=== PATIENT | female | born 1955 | race Caucasian/White ===

== ENCOUNTER 2016-07-02 21:15 | Inpatient (IN) | payer MEDICARE, OTHER ==
--- NOTE | ~2016-07-02 | CR63 ---
[facility] A Service of [facility] RADIOLOGY TEXT RESULTS PATIENT: CORNELIUS SAMS LOCATION: [facility] 313-01 : 55 UNIT #: [id number] AGE: [address]: Natalie Stephenson MD SEX: F ORDER DR: [id number] [facility] [address] [place], [place] [address] [id number] I MR#: [id number] Acc #: [id number] NAME: CORNELIUS SAMS : 1955 SEX: F STUDY DATE/TIME: 07/05/2016 08:16 UNIT: [address] ROOM: [facility] STUDY DESCRIPTION: CR Chest 2 View Attending Physician: Natalie Stephenson M.D. Ordering Physician: Leonel Menendez M.D. Primary Care Physician: Haroldo Birmingham M.D. MEDICAL IMAGING REPORT This report is preliminary unless electronic signature is present EXAM Chest 2 views 07/05/2016 0816 hours HISTORY 60-year-old woman complaining of shortness of air for 4 days. History of asthma, diabetes and transient ischemic attack. COMPARISON 07/02/2016. FINDINGS Upright PA and lateral views of the chest are limited by low lung volumes and large body habitus. Heart size is stable at the upper limits of normal with stable tortuous aorta. There is hazy density at the right lung base similar to prior film. Lateral view is poorly penetrated and assessment for effusions cannot be made. No definite effusion is seen on the left. IMPRESSION Film is limited by large body habitus. The lateral view is nondiagnostic. There is no significant change from prior study. There is minimal hazy right basilar density with old rib fractures present on the right. No definite effusion or pneumothorax. Dictated by... Janine Erickson M.D. THIS IS AN ELECTRONICALLY VERIFIED REPORT Janine Erickson M.D. at 07/05/2016 2:35 PM [facility] A Service of [facility] RADIOLOGY TEXT RESULTS PATIENT: CORNELIUS SAMS LOCATION: [facility] 313-01 : 55 UNIT #: [id number] AGE: [address]: Natalie Stephenson MD SEX: F ORDER DR: QUINCY/hans TD: 07/05/2016 10:07 JOB #: [id number] MEDICAL IMAGING REPORT COPY
--- NOTE | ~2016-07-02 | CR72 ---
[facility] A Service of [facility] RADIOLOGY TEXT RESULTS PATIENT: CORNELIUS SAMS LOCATION: [facility] 313-01 : 55 UNIT #: [id number] AGE: [address]: Natalie Stephenson MD SEX: F ORDER DR: [id number] [facility] [address] [place], [place] [address] [id number] I MR#: [id number] Acc #: [id number] NAME: CORNELIUS SAMS : 1955 SEX: F STUDY DATE/TIME: 07/02/2016 20:16 UNIT: [address] ROOM: [facility] STUDY DESCRIPTION: CR Chest Single View Portable Attending Physician: Natalie Stephenson M.D. Ordering Physician: Hi Singh M.D. Primary Care Physician: Haroldo Birmingham M.D. MEDICAL IMAGING REPORT This report is preliminary unless electronic signature is present EXAM Chest portable, 07/02/2016 2016 hours HISTORY 60-year-old with shortness of air, fever, weakness and altered mental status today. COMPARISON 02/02/2016 FINDINGS Portable upright chest demonstrates stable spinal fusion rods. The lung volumes are low, with linear bibasilar densities decreased from the prior study. Basilar findings are likely atelectasis given the very low lung volumes. Heart size is stable. Chronic subluxation/dislocation at the right shoulder is unchanged. IMPRESSION 1. Persistent low lung volumes with minimal patchy bibasilar densities. Atelectasis is favored. There is no definite edema or effusion. 2. Chronic subluxation/dislocation at the right shoulder is unchanged from 02/02/2016. Dictated by... Janine Erickson M.D. THIS IS AN ELECTRONICALLY VERIFIED REPORT Janine Erickson M.D. at 07/03/2016 9:25 AM QUINCY/zina TD: 07/03/2016 00:49 [facility] A Service of [facility] RADIOLOGY TEXT RESULTS PATIENT: CORNELIUS SAMS [facility]ATION[facility] [id number] : 55 UNIT #: [id number] AGE: [address]: Natalie Stephenson MD SEX: F ORDER DR: JOB #: [id number] MEDICAL IMAGING REPORT COPY
--- NOTE | ~2016-07-02 | A ---
[facility] Nutrition Therapy DATE: 07/12/16 Patient: CORNELIUS SAMS Physician: SHERMAN Address: [facility] Room/Bed: [address] [place] [address], Zip: [place] [address] Admit Date: 07/02/16 Date of : 55 Height: 5 4 Weight: 227 103 NUTRITIONAL ASSESSMENT: REASON: LOS NUTRITION ASSESSMENT 60 YO FEMALE ADMITTED FOR SOB, FEVER, PNA PMH: DM, HTN, COPD, CAD, CVA, obesity, chronic pain, depression, cholecystectomy Anthropometrics: Ht: 64" Wt: 110.4 kg BMI: 41.8 Wt 07/12: 103 kg Weights range from 103-111 kg since admission Labs: BUN 32 Accuchecks 79-241 Meds: Furosemide, spironolactone, novolog, lipitor, pepcid, miralax, therapeutic formula, zofran, senokot, vitamin D, MOM I/O & Bowel function: 920/6472, last BM 07/12 Skin Integrity: Loosened nail left great toe Redness to coccyx and upper chest/ neck Edema: 3+ RLE/ RUE/ hand 2+ BUE Diet: Heart healthy Assessment: Chart reviewed, events noted. Pt seen for LOS nutrition assessment. RD spoke with the pt at bedside. Pt reports having a good appetite, and typically consuming 100% of meals since admission. RD briefly reviewed the pt's diet, and the pt denied having any questions. Pt did not want further diet education at this time. Pt does not seem to be at nutritional risk. Dx: N/A Intervention: 1. Heart healthy/ consistent carbohydrate diet Monitoring, Evaluation and Goals: 1. Oral intake; Continue to tolerate 50-75% meals 2. Labs; WNL 3. Weight; promote gradual weight loss [facility] Nutrition Therapy DATE: 07/12/16 Patient: CORNELIUS SAMS Physician: SHERMAN Address: [facility] Room/Bed: [address] [place] [address], Zip: [place] [address] Admit Date: 07/02/16 Date of : 55 Height: 5 4 Weight: 227 103 Recommendations: 1. Add consistent carbohydrate to diet in order due to the pt's h/o DM. Pt is not at nutritional risk at this time. Respectfully, JESSICA CARRANZA RD, LD [facility] cc: client file
--- NOTE | ~2016-07-02 | CO ---
Unit #: [id number] #: [id number] Patient: CORNELIUS SAMS [id number] [address] [place], [place] [address] [id number] I MR#: [id number] NAME: CORNELIUS SAMS ROOM: 313 Age: 60 Sex: F Admission Date: 07/02/2016 : 1955 Attending Physician: Natalie Stephenson M.D. Primary Care Physician: Haroldo Birmingham M.D. Consultation Date: 07/07/2016 CONSULTATION REPORT REASON FOR CONSULTATION Type 2 diabetes mellitus. HISTORY OF PRESENT ILLNESS Ms. Mary Pederson is a 60-year-old female, who has history of type 2 diabetes mellitus with A1c 7%, history of CVA, hypertension, COPD, who has been admitted with fever, shortness of air, and hypotension. She is being currently treated for possible sepsis. She is on also IV steroids. Her blood sugar has been above between 200 to 300 mg/dL. I have been asked to see the patient for further management. PAST MEDICAL HISTORY Type 2 diabetes mellitus, hypertension, COPD, history of CVA with right hemiplegia, coronary artery disease. PAST SURGICAL HISTORY Cholecystectomy, appendectomy, hysterectomy. SOCIAL HISTORY She is resident of [facility]. She has past history of smoking, quit some time ago. No alcohol or drug abuse. FAMILY HISTORY Noncontributory. ALLERGIES To sulfa and ibuprofen. HOME MEDICATIONS List is reviewed. CURRENT MEDICATIONS She is on Solu-Medrol IV q.8 and high dose supplement sliding scale. REVIEW OF SYSTEMS Not obtainable from the patient. Poor historian. PHYSICAL EXAMINATION GENERAL: She looks comfortable, in no acute respiratory distress. VITAL SIGNS: Temperature 98, respirations 18, blood pressure 156/77. HEENT: EOMI. Pupils equally reactive to light. NECK: Supple. No thyromegaly noted. CHEST: Good air entry. CVS: Regular rhythm. No murmurs. Unit #: [id number] #: [id number] Patient: CORNELIUS SAMS ABDOMEN: Benign. NEUROLOGIC: Right hemiparesis. DIAGNOSTIC STUDIES LABORATORY RESULTS: Reviewed. A1c 7.1. Accu-Chek log is reviewed. ASSESSMENT 1. Type 2 diabetes mellitus with hyperglycemia likely secondary to the IV steroids. 2. History of cerebrovascular accident with right hemiparesis. 3. Chronic obstructive pulmonary disease. PLAN I will discontinue Levemir and start the patient on NPH 20 units before each Solu-Medrol dose, NovoLog 5 units each meal plus medium dose supplement sliding scale, Accu-Cheks a.c. and h.s. Continue consistent carb diet. Thanks again for consultation. Dictated by... John Garza/nilo TD: 07/08/2016 01:08 JOB #: [id number] CONSULTATION REPORT X Marvin Reaves MD X CONSULTATION REPORT
--- NOTE | ~2016-07-02 | DS ---
Unit #: [id number] #: [id number] Patient: CORNELIUS BEDOYA [id number] [address] [address] [id number] I MR#: [id number] NAME: CORNELIUS BEDOYA ROOM: 313 Age: 60 Sex: F Admission Date: 07/02/2016 : 1955 Discharge Date: 07/12/2016 Attending Physician: Natalie Stephenson M.D. Primary Care Physician: Haroldo Birmingham M.D. DISCHARGE SUMMARY FINAL DIAGNOSES 1. Qerus-zq-vjtgxfh respiratory failure. 2. Pneumonia. 3. Possible obstructive sleep apnea. 4. Chronic obstructive pulmonary disease. 5. Systolic congestive heart failure with left ventricular ejection fraction of 15%. 6. History of cerebrovascular accident with right hemiplegia. 7. Immobility syndrome. 8. Paroxysmal supraventricular tachycardia. 9. Diabetes mellitus type 2. 10. Hypertension. 11. Hyperlipidemia. 12. Morbid obesity. 13. Chronic pain. DISCHARGE MEDICATIONS Discharge medications are: 1. Niferex 150 mg b.i.d. 2. Pepcid 20 mg daily. 3. Multivitamin one tablet daily. 4. Hydrocodone 10/325 one tablet q.4 h. p.r.n. 5. Spironolactone 12.5 mg p.o. daily. 6. Potassium 10 mEq daily. 7. Vitamin D 50,000 units weekly. 8. Senokot one tablet q.h.s. 9. Milk of magnesia 30 mL daily p.r.n. for constipation. 10. MiraLAX 17 g p.o. daily. 11. Furosemide 40 mg q.a.m. and 20 mg nightly. 12. Lipitor 10 mg q.h.s. 13. Insulin NPH 25 units subcu daily. 14. Januvia 100 mg daily. 15. Zofran 4 mg q.6 h. p.r.n. 16. Seroquel 25 mg q.a.m. and 50 mg q.h.s. 17. Clonazepam 2 mg q.h.s. p.r.n. 18. Coreg 6.25 mg b.i.d. 19. Nebulizer treatment with albuterol and ipratropium b.i.d. and q.4 h. p.r.n. 20. Prednisone 30 mg daily for three days, decrease 10 mg every three days until off. 21. Entresto one tablet q.12 h. 22. Cymbalta 60 mg b.i.d. 23. Zestril 50 mg q.h.s. Unit #: [id number] #: [id number] Patient: CORNELIUS BEDOYA Please note patient has completed the course of IV antibiotics. CONSULTATION DURING HOSPITALIZTAION 1. Dr. Luis Menendez from pulmonary services. 2. Dr. Reaves from endocrinology services. 3. Dr. Neal from cardiology services. DIAGNOSTIC STUDIES LABORATORY WORKUP: On discharge BMP shows sodium 140, potassium 4.0, chloride 100, BUN 32, creatinine 0.6, calcium 9.7. CBC shows WBC 20.2, hemoglobin 13.9, hematocrit 44.5 and platelet count of 220. IMAGING: Significant radiological studies done: CT scan of the chest which was done on the showed subsegmental infiltrate and atelectasis in the inferior lingula. Additional mild linear atelectasis in the posterior lower lobes. No pleural effusion. CT scan of the head without contrast was done on admission which shows no acute infection. CARDIOVASCULAR: Echocardiogram which was done during this Hospitalization which shows ejection fraction of 15%. HOSPITAL COURSE Ms. Cornelius Bedoya is a 60-year-old female who was admitted to the hospital with acute respiratory failure and altered mental status. Patient had accelerated hypertension also. Patient was diagnosed with healthcare-acquired pneumonia. A lot of history was taken from the patient's caregiver, Ms. Fernandes. Patient's medications were adjusted. IV antibiotics were started and IV Solu-Medrol was started. Patient also was started on BiPAP 16/6 plus O2 to be worn at nighttime. Echocardiogram ordered as patient was not really improving and BNP was elevated. Echocardiogram showed ejection fraction of 15%. Cardiology was consulted. Patient was placed on 1800 mL fluid restriction and medications were adjusted. Dr. Neal discussed with the patient's caregiver and power of workers compensation attorney, discussed overall medical condition and severe cardiomyopathy and code status. The patient's guardian agreed for conservative medical treatment, no cardiac cath at this time. She was undecided about code status; may need to have another discussion as outpatient. The patient's diuretics were increased and medications were adjusted. Patient is doing much better at this time, being discharged home on above medications. Patient will need BiPAP 16/6 with oxygen at nighttime. PHYSICAL EXAMINATION VITAL SIGNS: On discharge blood pressure 116/70, respiratory rate 19, pulse is 55, temperature 98.2. CHEST: Has fair air entry, decreased at the bases. CVS: S1, S2 positive, regular rhythm. DISCHARGE INSTRUCTIONS 1. Patient is being discharged to rehab facility in stable condition. 2. Dr. Birmingham to follow up the patient in [facility]. 3. Continue fluid restriction. 4. Follow up with Dr. Neal in one month. 5. Discuss code status with the patient's guardian as outpatient. Unit #: [id number] #: [id number] Patient: CORNELIUS BEDOYA Dictated by... John Hendrix/junior TD: 07/12/2016 15:58 JOB #: [id number] DISCHARGE SUMMARY X Natalie Stephenson MD X DISCHARGE SUMMARY
--- NOTE | ~2016-07-02 | CO ---
Unit #: [id number] #: [id number] Patient: CORNELIUS SAMS [id number] [facility]. [place], [place] [address] [id number] I MR#: [id number] NAME: CORNELIUS SAMS ROOM: 313 Age: 60 Sex: F Admission Date: 07/02/2016 : 1955 Attending Physician: Natalie Stephenson M.D. Primary Care Physician: Haroldo Birmingham M.D. Consultation Date: 07/09/2016 CONSULTATION REPORT Consult was requested per Dr. Menendez. This is a 60-year-old female with a past medical history of having a cerebrovascular accident in May 2013 with right sided hemiplegia, residual, obesity, hypertension, hyperlipidemia, diabetes, coronary artery disease, COPD, former smoker. She resides at [facility]. She was admitted on 07/02/16 with complaints of shortness of breath and high fever, found to be hypotensive after presenting to [facility] emergency room and found to have pneumonia. She as admitted and is being treated for pneumonia. During hospitalization for workup, she had an echocardiogram that revealed her ejection fraction is only 15% and, thus, cardiology was consulted. PAST MEDICAL HISTORY As stated above. PAST CARDIAC TESTING DENILSON in May 2013, status post her stroke. Her EF was found to be 50% to 55%. No other details of the DENILSON noted. However, she had a CT of her chest on 07/08 which showed low lung volumes and linear atelectasis in bilateral lower lobes. PAST SURGICAL HISTORY 1. Cholecystectomy. 2. Appendectomy. 3. Hysterectomy. 4. Orthopedic surgery to remove a right toe. 5. Back surgery with jania placement. FAMILY HISTORY Significant for coronary artery disease as her mother had a three vessel CABG at the age of 70 and at age 78. Father's side is unknown to her. ALLERGIES Sulfa and ibuprofen. MEDICATIONS Home medicines include: 1. Multivitamin daily. 2. Vitamin D 5000 units weekly. 3. Clonazepam 2 mg at bedtime. 4. Cozaar 50 mg daily. 5. Cymbalta 60 mg b.i.d. Unit #: [id number] #: [id number] Patient: CORNELIUS SAMS 6. Lodine 400 mg three times a day as needed for pain. 7. Furosemide 40 mg daily. 8. Neurontin 600 mg three times a day. 9. Januvia 100 mg daily. 10. Potassium 10 mEq daily. 11. Lipitor 10 mg at bedtime. 12. Milk of magnesia 30 mg daily as needed. 13. MiraLAX 17 g p.o. daily. 14. [place] 10/325, one tablet every four hours as needed. 15. Norvasc 10 mg at bedtime. 16. Pepcid 20 mg daily. 17. Senna tablet, one tablet at bedtime. 18. Tizanidine 4 mg b.i.d. 19. Zyrtec 10 mg daily. 20. Desyrel 50 mg at bedtime. 21. Fish oil 1000 mg daily. 22. Invanz 1 g intramuscularly daily. 23. Melatonin 3 mg at bedtime. 24. Niferex 150 mg b.i.d. 25. Albuterol sulfate two puffs every six hours as needed for shortness of air. 26. Seroquel 25 mg in the morning and 15 mg at bedtime. 27. Zofran 4 mg p.o. every six hours p.r.n. REVIEW OF SYSTEMS Not really able to be obtained as she was a rather poor historian. She does tell me she has no complaints, however, and no pain. PHYSICAL EXAMINATION VITAL SIGNS: 97.4, 98 heart rate, respirations 16, 156/88. Her weight is 111 kilograms. Her BMI is 41. GENERAL: She is laying in bed and appears in no acute distress. Her entire right side is immobile. HEENT: Head is normocephalic. Extraocular movements are intact. Pupils are equal. LUNGS: Diminished in the bases with coarse rhonchi bilaterally. CARDIOVASCULAR: She is in a regular rate with a regular rhythm. S1, S2 noted. ABDOMEN: Soft, nondistended and obese. However, she is tender to the left upper quadrant and she has positive bowel sounds. EXTREMITIES: 1+ edema and the right side has more edema than the left side. Her left hand is also mildly edematous at 1+. She is able to move upper and lower left sided extremities but is not able to move upper or lower right sided extremities. DIAGNOSTIC STUDIES IMAGING: Chest x-ray was done which showed persistent low lung volumes, minimal patchy bibasilar densities, atelectasis. LABORATORY: BNP of 312, sodium 132, potassium 4.6, chloride 92, CO2 30, BUN of 31, creatinine 0.6, glucose 221. Liver enzymes were normal. Urinalysis showed 3+ protein, more than 1000 glucose and 2+ blood with no bacteria noted. CARDIOVASCULAR: EKG dated July 02, 2016, showed normal sinus rhythm Unit #: [id number] #: [id number] Patient: CORNELIUS SAMS with nonspecific T wave abnormalities and a poor R wave progression. 2D echo on 07/08/16 showed an EF of 15%. ASSESSMENT 1. Acute hypoxic respiratory failure. 2. Acute systolic heart failure with an ejection fraction of 15%. 3. Diabetes: A1c of 7.1. 4. History of cerebrovascular accident with right sided hemiplegia in 2013. 5. Pneumonia. 6. Obesity. 7. Chronic obstructive pulmonary disease. 8. History of hyperlipidemia. PLAN I discussed with her guardian. However, she does not have a power of commercial attorney. Her blood pressure is quite elevated. We will start her on Coreg for her low EF 3.125 p.o. b.i.d. with parameters and spironolactone 25 mg p.o. daily. Check the cost of the Entresto as this would be appropriate to start Entresto. She has been on a diuretic, Lasix, 40 mg p.o. b.i.d. which is continued and an ARB, Cozaar 100 mg daily. Will DC her hydrochlorothiazide and continue her Norvasc 10 mg daily. She may be a candidate for a LifeVest upon discharge. Further plan per Dr. Neal. Thank you for this consultation. Dictated by... Meenu Huang APRN for John Valentine/elijah TD: 07/10/2016 07:54 JOB #: [id number] CONSULTATION REPORT X X CONSULTATION REPORT
--- NOTE | ~2016-07-02 | HP ---
Unit #: [id number] #: [id number] Patient: CORNELIUS SAMS [id number] [address] [place], [place] [address] [id number] I MR#: [id number] NAME: CORNELIUS SAMS ROOM: 313 Age: 60 Sex: F Admission Date: 07/02/2016 : 1955 Attending Physician: Natalie Stephenson M.D. Primary Care Physician: Haroldo Birmingham M.D. HISTORY AND PHYSICAL CHIEF COMPLAINT Shortness of breath, fever and congestion. HISTORY OF PRESENT ILLNESS Most of the history was taken from the patient's chart and emergency room notes. The patient is not able to provide much history. The patient did have a stroke in the past. Per the emergency room note, the patient had this going on yesterday, which started kind of suddenly. She had shortness of breath and high fever. She was sent to the emergency room for further evaluation. The patient was found to be hypotensive. She was found to have pneumonia and was admitted to the telemetry unit. I left a message for the family to call me back. PAST MEDICAL HISTORY The patient does have a significant past medical history 1. Diabetes mellitus. 2. Hypertension. 3. Chronic obstructive pulmonary disease. 4. History of coronary artery disease. 5. History of CVA with right hemiplegia. 6. Obesity. 7. Chronic pain. 8. Depression. PAST SURGICAL HISTORY 1. Cholecystectomy. 2. Appendectomy. 3. Hysterectomy. 4. Orthopedic surgery, right foot toe removal. 5. Back surgery with jania placement. Details of these surgeries are not known. SOCIAL HISTORY The patient is a resident of [facility]. She has a past history of smoking. She quit some time ago. No history of alcohol abuse or drug abuse. FAMILY HISTORY Unknown. ALLERGIES The patient is allergic to sulfa medications and ibuprofen. Unit #: [id number] #: [id number] Patient: CORNELIUS SAMS HOME MEDICATIONS 1. Multivitamins daily. 2. Vitamin D 50,000 units q. weekly. 3. Clonazepam 2 mg at bedtime. 4. Cozaar 50 mg daily. 5. Cymbalta 60 mg b.i.d. 6. Lodine 400 mg t.i.d. 7. Furosemide 40 mg daily. 8. Neurontin 600 mg t.i.d. 9. Januvia 100 mg daily. 10. Potassium 10 mEq daily. 11. Lipitor 10 mg at bedtime. 12. Milk of Magnesia p.r.n. constipation. 13. MiraLAX 17 g daily. 14. [place] 10/325 mg 1 tablet q.4 h. p.r.n. 15. Norvasc 10 mg daily. 16. Pepcid 20 mg daily. 17. Senna 1 tablet at nighttime. 18. Tizanidine 4 mg b.i.d. 19. Zyrtec 10 mg daily. 20. Desyrel 50 mg at bedtime. 21. Fish oil capsules daily. 22. Invanz 1 g daily. 23. Melatonin 3 mg at bedtime. 24. Niferex b.i.d. 25. ProAir inhaler q.6 h. 26. Seroquel 25 mg in the morning and 50 mg at bedtime. 27. Zofran 4 mg q.6 h. p.r.n. REVIEW OF SYSTEMS Not really obtainable at this time. PHYSICAL EXAMINATION GENERAL: The patient is lying in bed. She does not seem to be in any respiratory distress. VITALS: Blood pressure 182/100, respiratory rate 18, pulse 116, temperature 97.5. On admission it was 99.5. Oxygen saturation 90% on 6 liters. HEENT: Head is normocephalic. Eye movements are normal. CHEST: Decreased air entry. Bilateral crackles are heard. HEART: S1 and S2 positive. Regular rhythm. ABDOMEN: Obese, soft. EXTREMITIES: Negative edema. NEUROLOGIC: ELECTROLYTIC ETCHER, the patient does have hemiplegia on the right side and has kind of aphasia. Please note, neurologic examination was limited. Per the nurseKeisha, the family is stating that her aphasia is worse, although no family members are available at this time. DIAGNOSTIC STUDIES IMAGING: Chest x-ray was done, which showed persistent low lung volume with minimal patchy bibasilar densities. Atelectasis is favored. Blood cultures are no growth. LABORATORY: White blood cell count 12.6, hemoglobin 13.0, hematocrit 41.9, platelets 274. Lactic acid 2.1. Sodium 145, potassium 3.4, chloride 99, BUN 33, creatinine 0.8. Liver enzymes are stable. Urinalysis seems to be 3+ protein, more than 1000 glucose, blood 2+, no bacteria. Unit #: [id number] #: [id number] Patient: CORNELIUS SAMS ASSESSMENT The patient is being admitted to the telemetry unit with 1. Acute hypoxic hypercarbic respiratory failure. 2. Healthcare acquired pneumonia. 3. Accelerated hypertension. 4. Chronic obstructive pulmonary disease. 5. Diabetes mellitus, uncontrolled. 6. History of CVA. 7. History of hyperlipidemia. PLAN Admit to the telemetry unit. Dr. Luis Menendez has been consulted. Broad spectrum IV antibiotics have been started. Speech evaluation was done and diet has been adjusted accordingly. Blood pressure medications have been adjusted. CT scan of the head, stroke protocol, will be done as per family members. The patient's aphasia is worse. Hemoglobin A1c is being done. Home medications have been reviewed and adjusted. I have left a message with the family members to call me back to get more detailed history. Dictated by John Hendrix TD: 07/03/2016 13:49 JOB #: [id number] HISTORY AND PHYSICAL X Natalie Stephenson MD HISTORY AND PHYSICAL
--- NOTE | ~2016-07-02 | EKG ---
PATIENT: CORNELIUS SAMS UNIT #: [id number] Ventricular Rate: 85 BPM Atrial Rate: 85 BPM P-R Interval: 132 ms QRS Duration: 94 ms Q-T Interval: 372 ms QTC Calculation(Bezet): 442 ms P Bountiful: 59 degrees Calculated R Bountiful: -6 degrees Calculated T Bountiful: 66 degrees Diagnosis Line: Normal sinus rhythm Diagnosis Line: Nonspecific T wave abnormality Diagnosis Line: Abnormal ECG Diagnosis Line: When compared with ECG of 02-FEB-2016 15:53, Diagnosis Line: Premature ventricular complexes are no longer Diagnosis Line: Present Diagnosis Line: Diagnosis Line: Confirmed by ELISABET PEREIRA MD ([id number]) on Diagnosis Line: 07/02/2016 11:11:30 PM INTERPRETING : SANTOS
--- NOTE | ~2016-07-02 | CO ---
Unit #: [id number] #: [id number] Patient: CORNELIUS SAMS [id number] [address] [place], [place] [address] [id number] I MR#: [id number] NAME: CORNELIUS SAMS ROOM: 313 Age: 60 Sex: F Admission Date: 07/02/2016 : 1955 Attending Physician: Natalie Stephenson M.D. Primary Care Physician: Haroldo Birmingham M.D. Consultation Date: 07/03/2016 CONSULTATION REPORT REASON FOR CONSULTATION Pneumonia and respiratory failure. HISTORY OF PRESENT ILLNESS A 60-year-old female, who has been seen by Dr. Menendez in the past, who has COPD, sleep apnea, and respiratory failure. She actually was on CPAP in the past. The family is not sure why she is not on it now. They mentioned a possible missing piece from her CPAP unit. After her stroke, she lived at home and was relatively independent. She has, however, now transitioned to [facility] where she is a resident. She has become more and more immobile and has gained significant amount of weight. History is difficult to obtain, the patient basically answers to questions in one-word answers and the family is somewhat vague as well because of lack of information. She apparently had fever, chest congestion, shortness of breath and wheezing. In the emergency room, there was a question of sepsis. She was treated with Solu-Medrol, vancomycin, Zosyn, and tobramycin as well as Zithromax. She is more alert today according to family, but not quite back to baseline. 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 MEDICATIONS According to EHR include a variety of vitamins, clonazepam 2 mg at bedtime, Cozaar, Cymbalta, Lodine, Lasix, Neurontin, Januvia, potassium, Lipitor, a variety of bowel prep medications, Sherwood, Norvasc, Pepcid, tizanidine, Zyrtec, Desyrel. There was some mention of Invanz, it is unclear if she was receiving that at the intermediate or not. ProAir inhaler, Seroquel and Zofran. ALLERGIES Listed as sulfa and ibuprofen, unknown reactions. SOCIAL HISTORY She now resides at [facility]. She is a remote smoker. She does not currently drink. FAMILY HISTORY Basically unobtainable. Unit #: [id number] #: [id number] Patient: CORNELIUS SAMS REVIEW OF SYSTEMS Unobtainable in a reliable fashion. PHYSICAL EXAMINATION GENERAL: Reveals a patient, who is awake, in no acute distress, on 5 L. VITAL SIGNS: She is afebrile. Pulse 116, respiratory rate is 18, blood pressure is 182/100, height 5 feet 4 inches, weight 243, BMI is 41. HEENT: Pupils are equal, round, and reactive to light. Sclerae anicteric. Head atraumatic. NECK: Supple. No supraclavicular or cervical adenopathy appreciated. Mallampati class IV oropharynx. CHEST: Posterior auscultation could not be performed. She could not sit up and she was quite frankly too heavy to lift. She did have scattered rhonchi and a few wheeze. No stridor. CARDIAC: Reveals distant heart tones. Regular rate and rhythm. No pathologic murmur, rub, or gallop. ABDOMEN: Obese, soft, and nontender. No hepatomegaly or rebound. EXTREMITIES: Reveal no clubbing, cyanosis, or edema. Calves are nontender. SKIN: Warm and dry without rash or diaphoresis. NEUROLOGIC: She would not cooperate with a neurologic exam. DIAGNOSTIC STUDIES LABORATORY RESULTS: Arterial blood gas; pH is 7.43, pCO2 of 59, pO2 of 66 on 6 L. BUN is 33, creatinine 0.8. Lactic acid 2.3. INR normal. Cardiac enzymes normal. White blood cell count 12.6, hemoglobin 13, platelet count 274. Urinalysis; proteinuria, glucosuria. No significant pyuria or hematuria. Blood cultures performed and are pending. IMAGING STUDIES: Chest x-ray of low lung matamoros, she does have some left hemidiaphragm elevation. There is a retrocardiac density as well as right lower lobe density, atelectasis versus pneumonia. CARDIOVASCULAR STUDIES: Rhythm strips, sinus. EKG; nonspecific ST-T wave changes. IMPRESSION 1. Likely pneumonia, suspect aspiration. Must consider gram-negative rods or methicillin-resistant Staphylococcus aureus. 2. Respiratory failure, acute on chronic, usually on 2 L at the intermediate. 3. Obstructive sleep apnea, currently not on continuous positive airway pressure, but apparently was. Unknown reasons why she is not now. 4. Cerebrovascular accident. 5. Immobilization. 6. Hypertension with elevated blood pressure. 7. Multiple medical problems listed above. PLAN Maximize pulmonary status with a brief pulse of steroids, nebulized bronchodilators. Streptococcal and Legionella urinary antigens will be checked. My suspicion for atypical infection is low, so discontinue the Zithromax. We will hopefully be able to deescalate antibiotics relatively soon and this concept has been discussed with family. We will try BiPAP at night primarily for her sleep apnea. Long-term prognosis appears guarded. Thank you very much for allowing us to participate in the care of . Unit #: [id number] #: [id number] Patient: CORNELIUS SAMS. Dictated by... Rickey Veronica M.D. GONZALEZ/nilo TD: 07/04/2016 04:09 JOB #: [id number] CONSULTATION REPORT X Rickey Veronica MD X CONSULTATION REPORT
--- NOTE | ~2016-07-02 | BMI ---
[facility] Nutrition Therapy DATE: 07/03/16 Patient: CORNELIUS SAMS Physician: SHERMAN Address: [facility] Room/Bed: [address] [place] [address], Zip: [place] [address] Admit Date: 07/02/16 Date of : [birth year] Height: 5 4 Weight: 243 110.4 HIGH BMI NOTE: DX: 60 y/o female admitted with HCAP No new H&P available ANTHROPOMETRICS: Ht: 64", Wt: 110.4 kg, BMI: 41 DIET: Regular INTERVENTION: CC/HH diet, fluids/meds per MD RECOMMENDATIONS: Please change diet to consistent carb/healthy heart due to PMH and morbid obesity to promote a gradual weight loss towards a healthy BMI range. Respectfully, Fatemeh Glover, TRISHA, LD [facility] cc: client file
--- NOTE | ~2016-07-02 | CR63 ---
[facility] A Service of [facility] RADIOLOGY TEXT RESULTS PATIENT: CORNELIUS SAMS LOCATION: [facility] : 55 UNIT #: [id number] AGE: [address]: Natalie Stephenson MD SEX: F ORDER DR: [id number] [facility] [address]. [place], [place] [address] [id number] I MR#: [id number] Acc #: [id number] NAME: CORNELIUS SAMS : 1955 SEX: F STUDY DATE/TIME: 07/08/2016 7:33 UNIT: [address] ROOM: [facility] STUDY DESCRIPTION: CR Chest 2 View Attending Physician: Natalie Stephenson M.D. Ordering Physician: Leonel Menendez M.D. Primary Care Physician: Haroldo Birmingham M.D. MEDICAL IMAGING REPORT This report is preliminary unless electronic signature is present EXAM Two-view chest. INDICATION Pneumonia follow up. PROCEDURE Frontal view chest. COMPARISON 07/05/2016 FINDINGS Heart size is probably stable but is obscured. There is new hazy opacity throughout the left hemithorax. No pneumothorax. IMPRESSION New hazy opacity throughout the left hemithorax, probably representing a layering left effusion. Could also represent worsening left lung opacity. Dictated by... Jose Reddy M.D. THIS IS AN ELECTRONICALLY VERIFIED REPORT Jose Reddy M.D. at 07/09/2016 9:51 AM EED/tmw TD: 07/08/2016 13:09 JOB #: [id number] MEDICAL IMAGING REPORT [facility] A Service of [facility] RADIOLOGY TEXT RESULTS PATIENT: CORNELIUS SAMS LOCATION: [facility] : 55 UNIT #: [id number] AGE: [address]: Natalie Stephenson MD SEX: F ORDER DR: COPY
--- NOTE | ~2016-07-02 | CT71 ---
[facility] A Service of [facility] RADIOLOGY TEXT RESULTS PATIENT: CORNELIUS SAMS LOCATION: [facility] 313-01 : 55 UNIT #: [id number] AGE: [address]: Natalie Stephenson MD SEX: F ORDER DR: [id number] [facility] [address] [place], [place] [address] [id number] I MR#: [id number] Acc #: [id number] NAME: CORNELIUS SAMS : 1955 SEX: F STUDY DATE/TIME: 07/03/2016 15:56 UNIT: C3A [facility] ROOM: [facility] STUDY DESCRIPTION: CT Head Wo Contrast Attending Physician: Natalie Stephenson M.D. Ordering Physician: Natalie Stephenson M.D. Primary Care Physician: Haroldo Birmingham M.D. MEDICAL IMAGING REPORT This report is preliminary unless electronic signature is present EXAM Noncontrast CT head, 07/03/2016 at 15:56 HISTORY A 60-year-old female who arrived in the emergency room on 07/02/2016 unresponsive and lethargic. Previous history of stroke and previous craniotomy. Hemiplegia. Diabetes. Hypertension. TECHNIQUE This CT exam was performed with one or more of the following radiation dose reduction techniques: automatic exposure control, adjustment of mA and/or kV according to patient size, and iterative reconstruction. COMPARISON CT head without contrast 02/02/2016. FINDINGS Surgical changes of the left frontal temporal and parietal craniotomy are present with josselin hole defect in the right frontal calvarium. Right frontal approach ventriculostomy catheter extends to the third ventricular margin. Ventricular configuration is stable since 02/02/2016. There is chronic-appearing encephalomalacic change centered predominately within the left basal ganglion, with resulting ex vacuo dilation of the left lateral ventricle, similar to prior. Encephalomalacic changes are likewise demonstrated within the left parietal lobe slightly more superiorly, unchanged. There is no convincing CT evidence of acute or evolving infarct on this exam. Mild right sphenoid and left ethmoid sinus mucosal thickening is present. Mastoid air cells are clear. No acute intracranial hemorrhage or mass lesion is seen. IMPRESSION No acute findings. No significant change from 02/02/2016. [facility] A Service of [facility] RADIOLOGY TEXT RESULTS PATIENT: CORNELIUS SAMS LOCATION: [facility] 313-01 : 55 UNIT #: [id number] AGE: [address]: Natalie Stephenson MD SEX: F ORDER DR: Dictated by... Devika Colorado M.D. THIS IS AN ELECTRONICALLY VERIFIED REPORT Devika Colorado M.D. at 07/04/2016 7:31 AM DUNCAN/preet TD: 07/03/2016 20:33 JOB #: [id number] MEDICAL IMAGING REPORT COPY
--- NOTE | ~2016-07-02 | CT57 ---
[facility] A Service of [facility] RADIOLOGY TEXT RESULTS PATIENT: CORNELIUS SAMS LOCATION: [facility] 313-01 : 55 UNIT #: [id number] AGE: [address]: Natalie Stephenson MD SEX: F ORDER DR: [id number] [facility] [address] [place], [place] [address] [id number] I MR#: [id number] Acc #: [id number] NAME: CORNELIUS SAMS : 1955 SEX: F STUDY DATE/TIME: 07/08/2016 14:27 UNIT: [address] ROOM: [facility] STUDY DESCRIPTION: CT Chest Wo Cont Attending Physician: Natalie Stephenson M.D. Ordering Physician: Leonel Menendez M.D. Primary Care Physician: Haroldo Birmingham M.D. MEDICAL IMAGING REPORT This report is preliminary unless electronic signature is present EXAM CT chest without contrast HISTORY Pleural effusion. Pneumonia. Shortness of air and cough for [address] exam was performed with one or more of the following radiation dose reduction techniques: Automatic exposure control, adjustment of mA and/or kV according to patient size, and iterative reconstruction. FINDINGS CT chest without contrast demonstrates moderately dense subsegmental infiltrate and probable associated atelectasis in the inferior lingula. There is also mild linear atelectasis in the posterior lower lobes. No pleural effusions. No adenopathy. Normal caliber thoracic aorta. Spinal jania fixation from the upper thoracic to upper lumbar spine. Mild right thoracic curve. Images of the upper abdomen demonstrate anterior abdominal wall hernia repair and cholecystectomy. IMPRESSION 1. Subsegmental infiltrate and atelectasis in the inferior lingula. 2. Additional mild linear atelectasis in the posterior lower lobes. 3. No pleural effusions. 4. Low lung volumes. 5. No adenopathy. Dictated by... Madhu Bell M.D. THIS IS AN ELECTRONICALLY VERIFIED REPORT [facility] A Service of [facility] RADIOLOGY TEXT RESULTS PATIENT: CORNELIUS SAMS LOCATION: [facility] 313-01 : 55 UNIT #: [id number] AGE: [address]: Natalie Stephenson MD SEX: F ORDER DR: Madhu Bell M.D. at 07/08/2016 11:45 PM DFL/psc TD: 07/08/2016 22:58 JOB #: [id number] MEDICAL IMAGING REPORT COPY
[2016-07-02 20:15] LABS: ARTERIAL BLD GAS O2 SATURATION 90.8 % (90.0-100.0); ARTERIAL BLOOD GAS CARBOXY HB 0.9 %sat (0.0-9.0); ARTERIAL BLOOD GAS HCO3 40.3 mmol/L; ARTERIAL BLOOD GAS pH 7.438 (7.350-7.450)
[2016-07-02 20:16] LABS: ARTERIAL BLOOD GAS ALLEN TEST NORMAL; ARTERIAL BLOOD GAS ART SITE LEFT RADIAL; ARTERIAL BLOOD GAS DELIVERY NASAL CANNULA; ARTERIAL BLOOD GAS PCO2 59.6 mmHg (35.0-45.0); ARTERIAL BLOOD GAS PO2 66.3 mmHg (80.0-100); ARTERIAL DRAW? YES
[2016-07-02 20:32] LABS: POC - CKMB 1.3 ng/mL (0.0-7.9); POC - TROPONIN <0.05 ng/mL (<=0.05)
[2016-07-02 20:36] LABS: BASOPHIL# 0.1 X10e3 (0-0.3); BASOPHIL% 0.5 % (0-2.5); HEMATOCRIT 41.9 % (35.0-45.0); LYMPHOCYTE# 2.4 X10e3 (1.0-3.5); LYMPHOCYTE% 18.8 % (17.0-45.0); MEAN CELL VOLUME 90.2 FL (83-96); MEAN CORPUSCULAR HEMOGLOBIN 28.1 PG (28-34); MEAN CORPUSCULAR HGB CONC 31.1 g/dL (30-36); MEAN PLATELET VOLUME 9.5 FL (6.5-11.5); MONOCYTE# 1.1 X10e3 (0-1.0); MONOCYTE% 8.8 % (3.0-12.0); NEUTROPHIL# 9.1 X10e3 (1.5-7.1); NEUTROPHIL% 71.9 % (40-75); PLATELET COUNT 274 X10e3 (140-420); RED BLOOD COUNT 4.65 X10e (3.90-5.30); RED CELL DISTRIBUTION WIDTH 15.7 % (11.0-15.5); WHITE BLOOD COUNT 12.6 X10e3 (4.0-10.5)
[2016-07-02 20:37] LABS: DIFF IND NO
[2016-07-02 20:49] LABS: PROTHROMBIN TIME (PATIENT) 10.9 SECONDS (9.6-11.5)
[2016-07-02 20:51] LABS: PARTIAL THROMBOPLASTIN TIME <20.0 SECONDS (23.5-31.3)
[2016-07-02 21:02] LABS: ALBUMIN SERUM 3.6 g/dL (3.5-5.0); ALKALINE PHOSPHATASE 72 U/L (32-92); ALT (SGPT) 40 U/L (10-40); AST (SGOT) 33 U/L (10-42); BILIRUBIN, DIRECT 0.1 mg/dL (0.0-0.2); BILIRUBIN,INDIRECT 0.6 mg/dL (0.0-0.9); BILIRUBIN,TOTAL 0.7 mg/dL (0.2-2.0); BLOOD UREA NITROGEN 33 mg/dL (9-23); BUN/CREATININE RATIO 41.25; CALCIUM SERUM 10.1 mg/dL (8.4-10.2); CARBON DIOXIDE 36 mmol/L (22-31); CHLORIDE 99 mmol/L (100-111); CREATININE SERUM 0.8 mg/dL (0.6-1.4); GLOM FILT RATE Estimated ABOVE60 mL/min (>60); GLUCOSE FASTING 244 mg/dL (70-110); LIPASE 31 U/L (22-51); POTASSIUM 3.4 mmol/L (3.5-5.1); PROTEIN TOTAL SERUM 8.2 g/dL (6.0-8.3); SODIUM 145 mmol/L (135-145)
[~2016-07-02 21:15] MED LIST: ALBUTEROL 0.5ML INH; ALBUTEROL17 GM INH; ASPIRIN ENTERI325 M1 PO; ASPIRIN325 M1 PO; ATARAX PO; CLARITIN D PO; CLONAZEPAM2 MG PO; COLACE PO; COZAAR PO; CYMBALTA30 MG PO; DESYREL50 MG PO; DUCOLAX PR; DULOXETINE HCL60 MG PO; FAMOTIDINE PO; FISH OIL 1,001000 M1 PO; FUROSEMIDE40 MG PO; GLUCOPHAGE XR500 MG PO; HYDROCODON-ACE1 EAC3 PO; HYDROCODON-ACE1 EAC5 PO; HYDROCORTISONE30 G1 EXT; HYDROXYZINE HCL25 M1 PO; INVANZ1 G/VIA1 IM; JANUMET 50-1,1 UDTAB PO; JANUMET XR 50-1 EAC1 PO; JANUVIA PO; KLONOPIN PO; KLONOPIN1 MG PO; KLONOPIN2 MG PO; LIPITOR PO; LISINOPRIL-HCTZ1 T15 PO; LISINOPRIL-HCTZ1 T21 PO; LODINE PO; LODINE400 M1 PO; LODINE400 MG PO; LOPRESSOR PO; LORTAB 10/500 T1 TAB PO; MELATIN3 MG PO; MILK OF MAGNESIA PO; MIRALAX17 G2 PO; MULTI VITAMIN1 EACH PO; NEURONTIN600 MG PO; NIFEREX-150 FO150 MG PO; NORCO 10-325 TA1 TAB PO; NORVASC PO; OMEPRAZOLE40 M1 PO; OXYGEN; POTASSIUM CHLO10 MEQ PO; PROAIR RESPICL90 MCG INH; SENNA S TABLET1 TAB PO; SEROQUEL25 MG PO; SEROQUEL50 M1 PO; SIMVASTATIN40 MG PO; SINGULAIR PO; SYMBICORT INH; TAGAMET PO; TIZANIDINE HCL4 M1 PO; VITAMIN D50000 UNIT PO; ZANAFLEX PO; ZANAFLEX4 M1 PO; ZANTAC150 MG PO; ZETIA PO; ZOFRAN PO; ZYRTEC PO; ZYRTEC10 M1 PO; ZYRTEC10 M2 PO
[2016-07-02 21:17] LABS: URINE SOURCE CLEAN CATCH
[2016-07-02 21:21] LABS: URINE APPEARANCE CLOUDY; URINE BILIRUBIN NEG (NEG); URINE BLOOD 2+ (NEG); URINE COLOR YELLOW; URINE GLUCOSE >1000 MG/DL (NEG); URINE KETONE TRACE (NEG); URINE LEUKOCYTE ESTERASE NEG (NEG); URINE NITRATE NEG (NEG); URINE PH 5.5 (5-8); URINE PROTEIN 3+ (NEG); URINE SPECIFIC GRAVITY 1.035 (1.003-1.035); URINE UROBILINOGEN 0.2 MG/DL (NEG)
[2016-07-02 21:22] LABS: URINE BACTERIA AUWI NEG (NEGATIVE); URINE SQUAMOUS EPITHELIAL CELL FEW /[HPF]
[2016-07-02 21:34] LABS: CULTURE INDICATED? NO; URINE AMORPHOUS SEDIMENT AMORP PHOSPHATES
[2016-07-03 02:27] LABS: BASOPHIL% 0.2 % (0-2.5); DIFF IND NO; HEMATOCRIT 40.6 % (35.0-45.0); HEMOGLOBIN 12.7 gm/dL (12.0-16.0); LYMPHOCYTE# 1.8 X10e3 (1.0-3.5); LYMPHOCYTE% 15.9 % (17.0-45.0); MEAN CELL VOLUME 91.1 FL (83-96); MEAN CORPUSCULAR HEMOGLOBIN 28.4 PG (28-34); MEAN CORPUSCULAR HGB CONC 31.2 g/dL (30-36); MEAN PLATELET VOLUME 9.6 FL (6.5-11.5); MONOCYTE# 0.2 X10e3 (0-1.0); MONOCYTE% 2.1 % (3.0-12.0); NEUTROPHIL% 81.8 % (40-75); PLATELET COUNT 251 X10e3 (140-420); RED BLOOD COUNT 4.46 X10e (3.90-5.30); RED CELL DISTRIBUTION WIDTH 15.2 % (11.0-15.5); WHITE BLOOD COUNT 11.1 X10e3 (4.0-10.5)
[2016-07-03 02:51] LABS: BLOOD UREA NITROGEN 31 mg/dL (9-23); BUN/CREATININE RATIO 38.75; CALCIUM SERUM 9.5 mg/dL (8.4-10.2); CARBON DIOXIDE 33 mmol/L (22-31); CHLORIDE 107 mmol/L (100-111); CREATININE SERUM 0.8 mg/dL (0.6-1.4); GLOM FILT RATE Estimated ABOVE60 mL/min (>60); GLUCOSE FASTING 307 mg/dL (70-110); POTASSIUM 3.8 mmol/L (3.5-5.1); SODIUM 145 mmol/L (135-145)
[2016-07-04 06:18] LABS: ALBUMIN SERUM 3.2 g/dL (3.5-5.0); ALKALINE PHOSPHATASE 67 U/L (32-92); ALT (SGPT) 35 U/L (10-40); AST (SGOT) 39 U/L (10-42); BILIRUBIN,TOTAL 0.7 mg/dL (0.2-2.0); BLOOD UREA NITROGEN 21 mg/dL (9-23); CARBON DIOXIDE 30 mmol/L (22-31); CHLORIDE 105 mmol/L (100-111); CREATININE SERUM 0.6 mg/dL (0.6-1.4); GLOM FILT RATE Estimated ABOVE60 mL/min (>60); GLUCOSE FASTING 223 mg/dL (70-110); POTASSIUM 4.4 mmol/L (3.5-5.1); PROTEIN TOTAL SERUM 6.8 g/dL (6.0-8.3); SODIUM 142 mmol/L (135-145)
[2016-07-04 08:00] LABS: BASOPHIL# 0.1 X10e3 (0-0.3); BASOPHIL% 0.6 % (0-2.5); EOSINOPHIL% 0.1 % (0.0-7.0); HEMATOCRIT 39.4 % (35.0-45.0); HEMOGLOBIN 12.3 gm/dL (12.0-16.0); LYMPHOCYTE# 2.9 X10e3 (1.0-3.5); LYMPHOCYTE% 17.5 % (17.0-45.0); MEAN CELL VOLUME 90.2 FL (83-96); MEAN CORPUSCULAR HEMOGLOBIN 28.1 PG (28-34); MEAN CORPUSCULAR HGB CONC 31.1 g/dL (30-36); MEAN PLATELET VOLUME 9.6 FL (6.5-11.5); MONOCYTE# 0.6 X10e3 (0-1.0); MONOCYTE% 3.9 % (3.0-12.0); NEUTROPHIL# 13.1 X10e3 (1.5-7.1); NEUTROPHIL% 77.9 % (40-75); PLATELET COUNT 250 X10e3 (140-420); RED BLOOD COUNT 4.37 X10e (3.90-5.30); WHITE BLOOD COUNT 16.8 X10e3 (4.0-10.5)
[2016-07-04 08:01] LABS: DIFF IND YES
[2016-07-04 11:00] LABS: LEGIONELLA AG URINE NEG (NEG)
[2016-07-04 11:05] LABS: PLATELET ESTIMATE NORMAL (NORMAL)
[2016-07-04 11:06] LABS: ANISOCYTOSIS SL; RBC NORMAL YES
[2016-07-05 06:43] LABS: BLOOD UREA NITROGEN 20 mg/dL (9-23); BUN/CREATININE RATIO 33.33; CALCIUM SERUM 9.5 mg/dL (8.4-10.2); CARBON DIOXIDE 29 mmol/L (22-31); CHLORIDE 99 mmol/L (100-111); CREATININE SERUM 0.6 mg/dL (0.6-1.4); GLOM FILT RATE Estimated ABOVE60 mL/min (>60); GLUCOSE FASTING 234 mg/dL (70-110); POTASSIUM 4.7 mmol/L (3.5-5.1); SODIUM 138 mmol/L (135-145)
[2016-07-05 08:06] LABS: HEMATOCRIT 38.5 % (35.0-45.0); HEMOGLOBIN 12.1 gm/dL (12.0-16.0); MEAN CELL VOLUME 89.7 FL (83-96); MEAN CORPUSCULAR HEMOGLOBIN 28.2 PG (28-34); MEAN CORPUSCULAR HGB CONC 31.4 g/dL (30-36); MEAN PLATELET VOLUME 9.3 FL (6.5-11.5); RED BLOOD COUNT 4.29 X10e (3.90-5.30); RED CELL DISTRIBUTION WIDTH 15.2 % (11.0-15.5); WHITE BLOOD COUNT 12.8 X10e3 (4.0-10.5)
[2016-07-06 05:17] LABS: HEMATOCRIT 38.4 % (35.0-45.0); MEAN CELL VOLUME 88.6 FL (83-96); MEAN CORPUSCULAR HEMOGLOBIN 27.6 PG (28-34); MEAN CORPUSCULAR HGB CONC 31.2 g/dL (30-36); MEAN PLATELET VOLUME 9.6 FL (6.5-11.5); RED BLOOD COUNT 4.34 X10e (3.90-5.30); RED CELL DISTRIBUTION WIDTH 14.6 % (11.0-15.5); WHITE BLOOD COUNT 12.9 X10e3 (4.0-10.5)
[2016-07-06 07:19] LABS: BLOOD UREA NITROGEN 18 mg/dL (9-23); CALCIUM SERUM 9.3 mg/dL (8.4-10.2); CARBON DIOXIDE 30 mmol/L (22-31); CHLORIDE 100 mmol/L (100-111); CREATININE SERUM 0.5 mg/dL (0.6-1.4); GLOM FILT RATE Estimated ABOVE60 mL/min (>60); GLUCOSE FASTING 214 mg/dL (70-110); POTASSIUM 5.1 mmol/L (3.5-5.1); SODIUM 139 mmol/L (135-145)
[2016-07-07 07:44] LABS: BLOOD UREA NITROGEN 22 mg/dL (9-23); BUN/CREATININE RATIO 36.66; CALCIUM SERUM 10.3 mg/dL (8.4-10.2); CARBON DIOXIDE 34 mmol/L (22-31); CHLORIDE 95 mmol/L (100-111); CREATININE SERUM 0.6 mg/dL (0.6-1.4); GLOM FILT RATE Estimated ABOVE60 mL/min (>60); GLUCOSE FASTING 263 mg/dL (70-110); POTASSIUM 4.3 mmol/L (3.5-5.1); SODIUM 143 mmol/L (135-145)
[2016-07-09 08:00] LABS: HEMATOCRIT 45.1 % (35.0-45.0); HEMOGLOBIN 14.7 gm/dL (12.0-16.0); MEAN CELL VOLUME 86.5 FL (83-96); MEAN CORPUSCULAR HEMOGLOBIN 28.3 PG (28-34); MEAN CORPUSCULAR HGB CONC 32.7 g/dL (30-36); MEAN PLATELET VOLUME 8.9 FL (6.5-11.5); RED BLOOD COUNT 5.22 X10e (3.90-5.30); RED CELL DISTRIBUTION WIDTH 17.5 % (11.0-15.5); WHITE BLOOD COUNT 17.7 X10e3 (4.0-10.5)
[2016-07-09 10:23] LABS: BLOOD UREA NITROGEN 31 mg/dL (9-23); BUN/CREATININE RATIO 51.66; CARBON DIOXIDE 30 mmol/L (22-31); CHLORIDE 92 mmol/L (100-111); CREATININE SERUM 0.6 mg/dL (0.6-1.4); GLOM FILT RATE Estimated ABOVE60 mL/min (>60); GLUCOSE FASTING 221 mg/dL (70-110); POTASSIUM 4.6 mmol/L (3.5-5.1); SODIUM 132 mmol/L (135-145)
[2016-07-10 12:54] LABS: BLOOD UREA NITROGEN 41 mg/dL (9-23); BUN/CREATININE RATIO 51.25; CALCIUM SERUM 10.1 mg/dL (8.4-10.2); CARBON DIOXIDE 29 mmol/L (22-31); CHLORIDE 94 mmol/L (100-111); CREATININE SERUM 0.8 mg/dL (0.6-1.4); GLOM FILT RATE Estimated ABOVE60 mL/min (>60); GLUCOSE FASTING 144 mg/dL (70-110); MAGNESIUM 2.2 mg/dL (1.6-3.0); POTASSIUM 3.8 mmol/L (3.5-5.1); SODIUM 136 mmol/L (135-145)
[2016-07-11 06:10] LABS: HEMATOCRIT 44.8 % (35.0-45.0); HEMOGLOBIN 13.9 gm/dL (12.0-16.0); MEAN CELL VOLUME 89.1 FL (83-96); MEAN CORPUSCULAR HEMOGLOBIN 27.6 PG (28-34); MEAN PLATELET VOLUME 10.1 FL (6.5-11.5); RED BLOOD COUNT 5.03 X10e (3.90-5.30); RED CELL DISTRIBUTION WIDTH 15.5 % (11.0-15.5); WHITE BLOOD COUNT 18.2 X10e3 (4.0-10.5)
[2016-07-12 08:19] LABS: HEMATOCRIT 44.5 % (35.0-45.0); HEMOGLOBIN 13.9 gm/dL (12.0-16.0); MEAN CELL VOLUME 89.1 FL (83-96); MEAN CORPUSCULAR HEMOGLOBIN 27.7 PG (28-34); MEAN CORPUSCULAR HGB CONC 31.1 g/dL (30-36); RED CELL DISTRIBUTION WIDTH 15.4 % (11.0-15.5); WHITE BLOOD COUNT 20.2 X10e3 (4.0-10.5)
[2016-07-12 08:42] LABS: BLOOD UREA NITROGEN 32 mg/dL (9-23); BUN/CREATININE RATIO 53.33; CALCIUM SERUM 9.7 mg/dL (8.4-10.2); CARBON DIOXIDE 31 mmol/L (22-31); CHLORIDE 100 mmol/L (100-111); CREATININE SERUM 0.6 mg/dL (0.6-1.4); GLOM FILT RATE Estimated ABOVE60 mL/min (>60); GLUCOSE FASTING 77 mg/dL (70-110); SODIUM 140 mmol/L (135-145)
== END 2016-07-12 20:03 | DRG 177 ==
LOC: CED 21:15 → CEDOF 22:15 → C3A PCU 23:43
PROVIDERS: Emergency Medicine; Hospitalist; Internal Medicine; Physician Assistant Medical
PROC: B24BYZZ Ultrasonography of Heart with Aorta using Other Contrast (ICD-10-PCS; 2016-07-06)
PROC: 05H533Z Insertion of Infusion Device into Right Subclavian Vein, Percutaneous Approach (ICD-10-PCS; principal; 2016-07-08)
PROC: B546ZZA Ultrasonography of Right Subclavian Vein, Guidance (ICD-10-PCS; 2016-07-08)
DX: J69.0 Pneumonitis due to inhalation of food and vomit (principal); I50.21 Acute systolic (congestive) heart failure; J96.21 Acute and chronic respiratory failure with hypoxia; I69.951 Hemiplegia and hemiparesis following unspecified cerebrovascular disease affecting right dominant side; E11.65 Type 2 diabetes mellitus with hyperglycemia; I47.1 Supraventricular tachycardia; Z68.41 Body mass index [BMI] 40.0-44.9, adult; Z79.84 Long term (current) use of oral hypoglycemic drugs; J44.9 Chronic obstructive pulmonary disease, unspecified; I25.10 Atherosclerotic heart disease of native coronary artery without angina pectoris; F32.9 Major depressive disorder, single episode, unspecified; G89.29 Other chronic pain; Z87.891 Personal history of nicotine dependence; Z90.49 Acquired absence of other specified parts of digestive tract; Z90.710 Acquired absence of both cervix and uterus; I11.0 Hypertensive heart disease with heart failure; E78.5 Hyperlipidemia, unspecified; Z88.2 Allergy status to sulfonamides; T38.0X5A Adverse effect of glucocorticoids and synthetic analogues, initial encounter; I69.920 Aphasia following unspecified cerebrovascular disease; G47.33 Obstructive sleep apnea (adult) (pediatric); Z99.81 Dependence on supplemental oxygen; M62.3 Immobility syndrome (paraplegic); E66.01 Morbid (severe) obesity due to excess calories
CPT/HCPCS: 36415; 36600; 51702; 70450; 71010; 71020; 71250; 80048; 80053; 80076; 80200; 80202; 81003; 82553; 82803; 82947; 83036; 83605; 83690; 83735; 83880; 84484; 85025; 85027; 85610; 85730; 87040; 87449; 87899; 92526; 92610; 93005; 93306; 94640; 94660; 94760; 96361; 96374; 96375; 99291; G8996-GN; G8997-GN; G8998-GN; J0456; J1650; J1815; J1940; J2543; J2920; J2930; J3260; J3370

== ENCOUNTER 2016-09-14 14:57 | Inpatient (IN) | payer MEDICARE, OTHER ==
--- NOTE | ~2016-09-14 | CR72 ---
[facility] A Service of [facility] RADIOLOGY TEXT RESULTS PATIENT: CORNELIUS SAMS LOCATION: A 307-01 : 55 UNIT #: [id number] AGE: [address]: Natalie Stephenson MD SEX: F ORDER DR: [id number] [facility] [address] [place], [place] [address] [id number] I MR#: [id number] Acc #: [id number] NAME: CORNELIUS SAMS : 1955 SEX: F STUDY DATE/TIME: 09/14/2016 17:08 UNIT: CEDOF ROOM: 54916 STUDY DESCRIPTION: CR Chest Single View Portable Attending Physician: Natalie Stephenson M.D. Ordering Physician: Higinio Franklin M.D. Primary Care Physician: Haroldo Birmingham M.D. MEDICAL IMAGING REPORT This report is preliminary unless electronic signature is present EXAM AP view of the chest. COMPARISON September 06, 2016, at 1:52 p.m. INDICATIONS 61-year-old female with altered mental status today. Central line placement today. FINDINGS There is a new left internal jugular catheter with the tip terminating in the upper SVC. Bilateral thoracic stabilization rods are incompletely imaged. No evidence of complication is seen. No convincing evidence of pneumothorax on this exam. There is poor respiratory effort. There are healed right-sided rib fractures. There is improved aeration in the left lung base favoring atelectasis. There is cardiomegaly and mediastinal widening, perhaps in part related to low lung volumes, portable technique and patient rotation. There are persistent interstitial opacities in the lungs which may reflect mild pulmonary vascular congestion. No significant pleural effusion. IMPRESSION 1. New left internal jugular catheter terminates in the upper SVC. No evidence of pneumothorax. 2. Improved aeration of the left lung base with minimal residual left basilar opacities favoring atelectasis. 3. Cardiomegaly with diffuse interstitial prominence which may not be appreciably changed from earlier today, suggestive of pulmonary vascular congestion. No significant pleural effusion. 4. Stable mediastinal widening which may be a product of patient rotation, low lung volumes and portable technique. This is not well evaluated on the current exam due to patient rotation. [facility] A Service of [facility] RADIOLOGY TEXT RESULTS PATIENT: CORNELIUS SAMS LOCATION: [facility] 307-01 : 55 UNIT #: [id number] AGE: [address]: Natalie Stephenson MD SEX: F ORDER DR: Dictated by... Bhargav Calvillo M.D. THIS IS AN ELECTRONICALLY VERIFIED REPORT Bhargav Calvillo M.D. at 09/17/2016 3:02 PM PADMINI/saskia TD: 09/14/2016 21:10 JOB #: [id number] MEDICAL IMAGING REPORT Page 1 of 1 COPY
--- NOTE | ~2016-09-14 | CR72 ---
[facility] A Service of [facility] & [facility] RADIOLOGY TEXT RESULTS PATIENT: CORNELIUS SAMS LOCATION: [address] : 55 UNIT #: [id number] AGE: [address]: Natalie Stephenson MD SEX: F ORDER DR: [id number] [facility] [address] [place], [place] [address] [id number] I MR#: [id number] Acc #: [id number] NAME: CORNELIUS SAMS : 1955 SEX: F STUDY DATE/TIME: 09/15/2016 4:14 [facility]: [facility]OM: [facility] STUDY DESCRIPTION: CR Chest Single View Portable Attending Physician: Natalie Stephenson M.D. Ordering Physician: Natalie Stephenson M.D. Primary Care Physician: Haroldo Birmingham M.D. MEDICAL IMAGING REPORT This report is preliminary unless electronic signature is present EXAM AP portable chest dated 09/15/2016 at 0414 HISTORY Shortness of breath, weakness, and respiratory failure today. COMPARISON AP portable chest 09/14/2016. FINDINGS Low volume inspiration. Fine interstitial prominence in both lungs, left greater than right, may represent mild interstitial edema. Improved aeration in the right lung compared to prior study. Probable mild left basilar atelectasis and trace left pleural effusion. Stable cardiomegaly. Vertebral fusion rods in place. Old right rib fracture. Left IJ central line extends to the upper SVC. No visible pneumothorax. IMPRESSION 1. Mild interstitial thickening in both lungs may represent edema. There is improved aeration in the right lung compared to prior. 2. Probable small left pleural effusion and left basilar atelectasis. 3. Stable cardiomegaly. Dictated by... Devika Colorado M.D. THIS IS AN ELECTRONICALLY VERIFIED REPORT Devika Colorado M.D. at 09/16/2016 4:19 AM DUNCAN/manny TD: 09/15/2016 09:08 JOB #: [id number] [facility] A Service of [facility] & [facility] RADIOLOGY TEXT RESULTS PATIENT: CORNELIUS SAMS LOCATION: [address] : [birth year] UNIT #: [id number] AGE: [address]: Natalie Stephenson MD SEX: F ORDER DR: MEDICAL IMAGING REPORT Page 1 of 1 COPY
--- NOTE | ~2016-09-14 | DS ---
Unit #: [id number] #: [id number] Patient: CORNELIUS SAMS [id number] [address] [place], [place] [address] [id number] I MR#: [id number] NAME: CORNELIUS SAMS ROOM: [facility] Age: 61 Sex: F Admission Date: 09/14/2016 : 1955 Discharge Date: 09/20/2016 Attending Physician: Natalie Stephenson M.D. Primary Care Physician: Haroldo Birmingham M.D. DISCHARGE SUMMARY FINAL DIAGNOSES 1. Hyperkalemia. 2. Hypomagnesemia. 3. Klebsiella pneumoniae urinary tract infection. 4. Chronic respiratory failure. 5. Systolic congestive heart failure with ejection fraction of 15% to 20%. 6. Acute kidney failure, which has resolved. 7. Diabetes mellitus is stable. 8. Hyperlipidemia. 9. Obstructive sleep apnea. Patient refused BiPAP. 10. Hypertension. DISCHARGE MEDICATIONS 1. Keflex 250 mg q.i.d. for 5 days. Please note, patient received IV Rocephin during hospitalization. 2. Lortab 10/325 one tablet q.4 p.r.n. 3. Melatonin 6 mg p.o. q.h.s. 4. Multivitamin every day. 5. Niferex 150 mg b.i.d. 6. Cymbalta 60 mg b.i.d. 7. Glucagon continue home dose. 8. Ipratropium and albuterol nebulizer q.i.d. and q.4 p.r.n. 9. Clonazepam 1 mg q.h.s. p.r.n. 10. Coreg 6.25 mg b.i.d. 11. Milk of magnesia every day. 12. MiraLAX every day. 13. Seroquel 25 mg in the morning and 50 mg at bedtime. 14. Zofran 4 mg q.6 p.r.n. for nausea. 15. Januvia 100 mg q.a.m. 16. Pepcid 20 mg every day. 17. Atorvastatin 10 mg every day. 18. Lasix 20 mg at bedtime and 40 mg in the morning. 19. Senokot 8.6 mg at bedtime. DIAGNOSTIC STUDIES LABORATORY: Workup on discharge: WBC 13.7, hemoglobin 8.8, hematocrit 28.1, and platelet count of 225. BMP showed sodium 140, potassium 4, chloride 101, BUN 9, creatinine 0.8, and calcium 10.1. Occult blood in the stool in negative. Blood cultures: 1 set grew Staph. species, coag-negative. Probably skin contaminant. Urine culture is Klebsiella pneumoniae, more than 100,000 colonies, sensitive to ceftriaxone. Troponin less than 0.03. BNP 119. Lactic acid 0.8 on admission. Ammonia 29. Unit #: [id number] #: [id number] Patient: CORNELIUS SAMS IMAGING: Chest x-ray, which was done on 09/20/2016, this morning, showed no significant change in the cardiopulmonary status, improved left-sided lung volumes, decreasing left basilar atelectasis. HOSPITAL COURSE Ms. Nicole is 61-year-old female who is very well known to me. She has had multiple admissions to the hospital. Last admission to [facility] was July 12, 2016. Patient was admitted by my colleague, Dr. Gucci Silva, for altered mental status and urinary tract infection with gram-negative rods and hypotension. Patient was also found to have acute kidney injury and hyperkalemia. Patient was started on IV Rocephin. Urine culture was growing Klebsiella pneumoniae, which was sensitive to Rocephin. We are going to change her to p.o. cephalosporin. Patient's leukocytosis has improved and patient is afebrile. Patient did have acute kidney injury. Dr. Kareem Armas was consulted for hyperkalemia and acute kidney injury, which is improved and resolved. There was a question of acute kidney injury from hypotension. Patient also has a history of preserved congestive heart failure, although her BNP was 66 and output is excellent. Patient's medications were adjusted and she is off SYLWIA inhibitors at this time. Patient has been off her hypertensive medication during hospitalization, which is being restarted now as the blood pressure has improved a lot. Although patient is on much less hypertensive medication than what she was on at on admission. Please refer to that. Patient may need to adjust her medications. EXAMINATION ON DISCHARGE VITAL SIGNS: Blood pressure 159/94 (we are restarting her Coreg at this time), respiratory rate 18, pulse is 81, temperature 98.1, and oxygen saturation is 100%. HEENT: Head is normocephalic. CHEST: Decreased air entry. CVS: S1 and S2 positive. Regular rhythm. ABDOMEN: Obese and soft. DISCHARGE INSTRUCTIONS 1. [facility]. 2. Dr. Birmingham to [facility] the [facility] the [facility]. 3. Medications as per med rec. 4. CBC and BMP to be repeated in 3-4 days. 5. Will let family know about the discharge. This was discussed with the patient. Dictated by... John Hendrix TD: 09/20/2016 12:13 JOB #: [id number] Unit #: [id number] #: [id number] Patient: CORNELIUS SAMS DISCHARGE SUMMARY Page 1 of 1 X Natalie Stephenson MD X DISCHARGE SUMMARY
--- NOTE | ~2016-09-14 | CO ---
Unit #: [id number] #: [id number] Patient: CORNELIUS SAMS [id number] [address] [place], [place] [address] [id number] MR#: [id number] NAME: CORNELIUS SAMS ROOM: [facility] Age: 61 Sex: F Admission Date: 09/14/2016 : 1955 Attending Physician: Natalie Stephenson M.D. Primary Care Physician: Haroldo [place] M.D. Consultation Date: 09/15/2016 CONSULTATION REPORT REASON FOR CONSULTATION Hyperkalemia and acute renal insufficiency. Thank you very much for asking us to see this patient in consultation. HISTORY OF PRESENT ILLNESS This patient is a 61-year-old female, who lives in the [facility] after having a stroke with right-sided paralysis, who presented here yesterday and last night was apparently unresponsive. She was noted to be hypotensive upon presentation. She was given fluid boluses. Upon presentation, she was noted to have an increased BUN and creatinine of 65 and 1.8 respectively, potassium was 5.8, it was repeated at midnight last night and potassium was up to 6.0 at which time I was consulted. The patient was given IV Bumex, calcium, and bicarb. Repeat potassium at 4:00 a.m. this morning, it was down to 5.6. The patient's BUN and creatinine improved to 58 and 1.5 with increased urine output with the Ferraro and the patient was given fluid boluses and then initially started on dopamine and now switched over to Levophed drip. Her blood pressure now is above 100. She has decreased responsive, still on a face mask. Apparently, she is a DNR, although I have not talked to the family about this. PAST MEDICAL HISTORY History of obstructive sleep apnea, history of COPD, history of atherosclerotic coronary artery disease with decreased EF of 15%, history of CVA with right-sided paralysis, history of immobilization, history of diabetes mellitus, history of hypertension and hyperlipidemia, history of obesity. MEDICATIONS Her medicines at custodial are multiple and have reviewed including from the Renal standpoint, she has been on lisinopril 50 mg at night as well as Lasix and Aldactone. Currently, she is on vancomycin, Levophed, Zosyn, Lovenox, and Pepcid. ALLERGIES She is allergic to sulfa and ibuprofen. SOCIAL HISTORY She is a previous smoker. No alcohol. She lives at [facility]. REVIEW OF SYSTEMS Unable to obtain. Unit #: [id number] #: [id number] Patient: CORNELIUS SAMS FAMILY HISTORY Unable to obtain. PHYSICAL EXAMINATION VITAL SIGNS: Again decreased responsive on face shield, 99% O2 saturation currently, her T-max 99.1, pulse 74 to 113, blood pressure is 61 to 131 over 30s to 90s and currently she is about 110/90. Her 2630+ in, out 3050, it appears to have at least 1500 mL in her Ferraro, very clear looking urine. HEENT: Her pupils are equal, round, and reactive to light. Again decreased responsiveness. Her mouth although limited exam, appears clear. NECK: Supple. No adenopathy. CARDIAC: She has a regular rhythm without a rub currently. LUNGS: Have a few bilateral rhonchi. ABDOMEN: Obese, bowel sounds positive, nontender, soft. EXTREMITIES: She has no significant lower extremity swelling. Pulses are intact in upper and lower extremities. JOINTS: No joint swelling. NEURO: Again unresponsive, unable to do adequate exam. : Ferraro catheter is in place. DIAGNOSTIC STUDIES LABORATORY RESULTS: Initial ABG showed a pH of 7.242, pCO2 of 72, PO2 of 77 on 2 L. Creatinine in June was 0.6. Her lactic acid 0.8. BNP is 66. Hemoglobin is 8.8, white count 12,500, platelets 224,000. Again her BUN and creatinine as mentioned above. Upon presentation this morning, she had a sodium of 140, potassium is down to 5.6, chloride is 104, bicarb is now at 29, glucose 211, calcium is 9.9, albumin is 2.7. UA shows specific gravity of 1.013, nitrite positive, no protein, 5 to 10 rbc's, 50 to 100 wbc's, 4+ bacteria. IMAGING STUDIES: Chest x-ray showed cardiomegaly and questionable pulmonary edema versus other. ASSESSMENT AND PLAN 1. Hyperkalemia. This increased potassium upon presentation multifactorial including renal failure as well as the patient was on lisinopril and Aldactone at home and I think potassium as well, all causing her acute increase in potassium. Certainly, it has improved some. We will recheck her BMP later this morning and we will treat medically as indicated. Certainly, we would hold her Aldactone, potassium, and lisinopril at this time. 2. Acute kidney injury. Increased BUN and creatinine, although improving now. Questionable from hypotension from either sepsis, overmedication, volume depletion, or even severe congestive heart failure. Her BNP is only 66 and urine output is excellent. I am going to keep her on a little bit of fluid, but reduce the rate, hold off anymore diuretics, I did give her a dose last night. Due to the hyperkalemia, we will follow her output and will determine any further workup and treatment depending on how she does over the next 12 to 48 hours. 3. Probable urinary tract infection. She is on Zosyn and vancomycin. Await culture results. Rule out sepsis. 4. Severe cardiomyopathy with decreased ejection fraction. Again with gentle hydration. 5. Respiratory failure. 6. Diabetes mellitus. Unit #: [id number] #: [id number] Patient: CORNELIUS SAMS Dictated by... Devante Armas M.D. NICK/nilo TD: 09/15/2016 09:27 JOB #: [id number] CONSULTATION REPORT Page 1 of 1 X Irving Armas MD X CONSULTATION REPORT
--- NOTE | ~2016-09-14 | HP ---
Unit #: [id number] #: [id number] Patient: CORNELIUS SAMS [id number] [address] [place], [place] [address] [id number] I MR#: [id number] NAME: CORNELIUS SAMS ROOM: [facility] Age: 61 Sex: F Admission Date: 09/14/2016 : 1955 Attending Physician: Natalie Stephenson M.D. Primary Care Physician: Haroldo [place] M.D. HISTORY AND PHYSICAL HISTORY OF PRESENT ILLNESS A 61-year-old white female, history of respiratory failure, type 2 diabetes mellitus, COPD, CHF, old CVA, PSVT, probable obstructive sleep apnea syndrome, ejection fraction of 15%, immobilization syndrome, hypertension, hyperlipidemia, morbid obesity. Admitted through the emergency room with respiratory failure, acute kidney injury, urinary tract infection, hyperkalemia. Apparently she arrived with altered mental status, found unresponsive from [facility], was brought in on 2 liters. Has multiple, multiple medicines and multiple medical problems, multiple surgeries. In the ER, there is no temperature recorded, pulse was 58, blood pressure was 61/40, O2 sat reportedly was 99% on 2 liters. Patient has been placed on Zosyn, vancomycin. Her urine culture is growing gram-negative rods. Blood culture, one of two, is positive for gram-positive cocci in clusters. She has been treated for hyperkalemia by the manager urology. She has been placed on the BiPAP by pulmonary service and admitted to the ICU. ALLERGIES Sulfa drugs and ibuprofen. MEDICATIONS PRIOR TO ADMISSION 1. Bernabe multivitamin 1 daily. 2. Hydrocortisone cream b.i.d. 3. Aldactone 12.5 mg daily. 4. Clonazepam 2 mg q.h.s. 5. Coreg 6.25 mg b.i.d. 6. Cymbalta 60 mg b.i.d. 7. Combivent inhaler b.i.d. 8. Entresto 24/26 mg q.12 hours. 9. Fish oil 1,000 mg daily. 10. Neurontin 100 mg t.i.d. 11. Glucagon p.r.n. 12. Januvia 100 mg daily. 13. Lasix 40 mg a.m. and 20 mg p.m. 14. Lipitor 10 mg daily. 15. Melatonin 6 mg q.h.s. 16. Milk of Magnesia p.r.n. 17. MiraLAX 17 grams daily. 18. Mycostatin powder p.r.n. 19. Niferex 150 mg b.i.d. 20. Lortab 10/325 one q.4 hours p.r.n. 21. NovoLog sliding scale insulin. 22. Pepcid a.c. 20 mg daily. 23. Senokot q.h.s. Unit #: [id number] #: [id number] Patient: CORNELIUS SAMS 24. Seroquel 25 mg a.m., 50 mg q.h.s. 25. Zestril, says 50 mg daily, which obviously is not correct, at bedtime. 26. Zofran 4 mg q.6 p.r.n. PAST SURGICAL HISTORY She has had a prior cholecystectomy, appendectomy, hysterectomy, partial right foot surgery, back surgery with jania placement, PAST MEDICAL HISTORY Type 2 diabetes mellitus, hypertension, COPD, coronary artery disease, CVA, obesity, chronic pain syndrome, depression. SOCIAL HISTORY Lives at [facility]. Prior smoker. No alcohol or street drug use. FAMILY HISTORY Family history is noncontributory. PHYSICAL EXAM VITAL SIGNS: Vital signs are given above. Her T max overnight was 99.2. GENERAL: The patient is sedate on BiPAP. Family is in the room. HEENT: Limited because of the CPAP mask but grossly within normal limits except for somewhat full facial cheeks. NECK: Neck showed no JVD, thyromegaly or carotid bruits. CHEST: Clear to auscultation. CARDIOVASCULAR: Heart has a regular rate and rhythm without any murmurs, rubs or gallops. ABDOMEN: Abdomen was large, soft, nondistended with positive bowel sounds. EXTREMITIES: Extremities showed no clubbing, cyanosis or edema. /RECTAL: Deferred. NEUROLOGIC: Exam is essentially unobtainable. DIAGNOSTIC STUDIES LAB VALUES: Again, one of two blood cultures positive for gram-positive cocci in clusters. Urine culture greater than 100,000 gram-negative rods. ABGs on 2 liters showed a pH of 7.242, a pCO2 of 72 and a PaO2 of 77. Urinalysis showed 3+ leukocytes, positive for nitrites, 5-10 RBCs, 50-100 WBCs, 4+ bacteria. Cardiac enzymes normal x1 set. CMP shows a potassium of 5.8, a BUN of 65, a creatinine of 1.8, a GFR 29.9 and an albumin of 2.7. CBC shows a white count of 13.7, a hemoglobin of 7.5 and a platelet count of 200,000. Second set of cardiac enzymes normal. Lactic acid normal, 0.8. BNP 66. Ammonia level 29. Urine drug screen positive for opiates but otherwise negative. IMAGING: Chest x-ray - Stable cardiomegaly, small left pleural effusion, mild interstitial edema. IMPRESSION 1. Urinary tract infection with gram-negative jania. 2. Hypotension. 3. Acute kidney injury. 4. Hyperkalemia. 5. Possible gram-positive cocci sepsis. 6. Acute respiratory failure. 7. CHF with severe left ventricular dysfunction. 8. COPD. 9. Old CVA. Unit #: [id number] #: [id number] Patient: CORNELIUS SAMS 10. PSVT. 11. Coronary artery disease. 12. Immobilization syndrome. 13. Morbid obesity. 14. Type 2 diabetes mellitus. PLAN Continue the IV Zosyn and vancomycin. Continue BiPAP. Nephrology and pulmonary are on board. She is on Pepcid for GI prophylaxis, Lovenox for DVT prophylaxis. Will obtain Accu-Cheks a.c. and h.s., low-dose sliding scale insulin. Note her hemoglobin this morning is up to 8.8. Will follow that, as well. Dictated by John Welsh/leon TD: 09/15/2016 13:37 JOB #: [id number] HISTORY AND PHYSICAL Page 1 of 1 X Gucci Silva MD HISTORY AND PHYSICAL
--- NOTE | ~2016-09-14 | CR72 ---
[facility] A Service of [facility] RADIOLOGY TEXT RESULTS PATIENT: CORNELIUS SAMS LOCATION: [facility] 307-01 : [birth year] UNIT #: [id number] AGE: [address]: Natalie Stephenson MD SEX: F ORDER DR: [id number] [facility] [address] [place], [place] [address] [id number] I MR#: [id number] Acc #: [id number] NAME: CORNELIUS SAMS : 1955 SEX: F STUDY DATE/TIME: 09/17/2016 5:04 UNIT: [facility] ROOM: [facility] STUDY DESCRIPTION: CR Chest Single View Portable Attending Physician: Natalie Stephenson M.D. Ordering Physician: Colten Ding M.D. Primary Care Physician: Haroldo [place] M.D. MEDICAL IMAGING REPORT This report is preliminary unless electronic signature is present EXAM AP portable chest 09/17/2016 05:04 HISTORY Respiratory failure, acute renal insufficiency, hypotension. Symptoms began 09/14/2016. Additional previous history of stroke, coronary artery disease, diabetes, congestive heart failure, hypertension, COPD. COMPARISON AP portable chest 09/15/2016. FINDINGS Low volume inspiration. Stable moderate cardiac enlargement. Multiple old right rib fractures. Left IJ central line tip extends to the upper SVC level. Interstitial thickening within both lungs noted, with improved aeration in the left lung compared to prior exam. Suspected mild left basilar atelectasis. No definite pleural effusion or pneumothorax. Old right rib fractures. Presumed cholecystectomy changes. IMPRESSION 1. Fine interstitial markings throughout both lungs again noted, with some interval improvement in left lung compared to prior. Findings may represent mild improvement in interstitial edema. Suspected left basilar atelectasis unchanged. 2. No visible pneumothorax. 3. Stable cardiomegaly. Dictated by... Devika [place] M.D. THIS IS AN ELECTRONICALLY VERIFIED REPORT [facility] A Service of [facility] & [facility] RADIOLOGY TEXT RESULTS PATIENT: CORNELIUS SAMS LOCATION: [facility] 307-01 : [birth year] UNIT #: [id number] AGE: [address]: Natalie Stephenson MD SEX: F ORDER DR: Devika [place] M.D. at 09/18/2016 9:59 PM DUNCAN/hans TD: 09/17/2016 08:38 JOB #: [id number] MEDICAL IMAGING REPORT Page 1 of 1 COPY
--- NOTE | ~2016-09-14 | CR63 ---
[facility] A Service of [facility] & [facility] RADIOLOGY TEXT RESULTS PATIENT: CORNELIUS SAMS LOCATION: [facility] 307- : [birth year] UNIT #: [id number] AGE: [address]: Natalie Stephenson MD SEX: F ORDER DR: [id number] [facility] [address] [place], [place] [address] [id number] I MR#: [id number] Acc #: [id number] NAME: CORNELIUS SAMS : 1955 SEX: F STUDY DATE/TIME: 09/18/2016 7:15 UNIT: [facility] ROOM: [facility] STUDY DESCRIPTION: CR Chest 2 View Attending Physician: Natalie Stephenson M.D. Ordering Physician: Leonel Menendez M.D. Primary Care Physician: Haroldo [place] M.D. MEDICAL IMAGING REPORT This report is preliminary unless electronic signature is present EXAM 2 views of the chest 09/18/2016 HORY Respiratory failure. Hypotension. Stroke, diabetes, coronary artery disease. Symptoms began 09/15/2016. FINDINGS AP and lateral radiographs of the chest are presented. Poor radiographic technique. Comparison 09/17/2016. Spinal fixation hardware unchanged in visualized extent. The left internal jugular central venous catheter terminates in superior vena cava. Stable cardiac enlargement. Pulmonary vascular congestion persists. Abnormally increased interstitial densities throughout the lungs bilaterally, most consistent with interstitial pulmonary edema stable to marginally worse than on prior examination. No significant airspace disease suggested in the right lung at this time. There is no right-sided pleural effusion or pneumothorax. Increasingly dense opacification in the left lower lung zone with partial obscuration of the left heart border likely reflects combination of airspace disease and atelectasis. Components of basilar pneumonia could be considered in the appropriate clinical context. Left pleural effusion not excluded. No pneumothorax. Dictated by... Martin Cheung M.D. THIS IS AN ELECTRONICALLY VERIFIED REPORT Martin Cheung M.D. at 09/18/2016 9:09 AM SCOTT/raisa TD: 09/18/2016 08:08 [facility] A Service of [facility] & [facility] RADIOLOGY TEXT RESULTS PATIENT: CORNELIUS SAMS LOCATION: [facility] 307-01 : [birth year] UNIT #: [id number] AGE: [address]: Natalie Stephenson MD SEX: F ORDER DR: JOB #: [id number] MEDICAL IMAGING REPORT Page 1 of 1 COPY
--- NOTE | ~2016-09-14 | CR72 ---
[facility] A Service of [facility] RADIOLOGY TEXT RESULTS PATIENT: CORNELIUS SAMS LOCATION: [facility] 307-01 : 55 UNIT #: [id number] AGE: [address]: Natalie Stephenson MD SEX: F ORDER DR: [id number] [facility] [address] [place], [place] [address] [id number] I MR#: [id number] Acc #: [id number] NAME: CORNELIUS SAMS : 1955 SEX: F STUDY DATE/TIME: 09/20/2016 5:57 UNIT: [address] ROOM: [facility] STUDY DESCRIPTION: CR Chest Single View Portable Attending Physician: Natalie Stephenson M.D. Ordering Physician: Natalie Stephenson M.D. Primary Care Physician: Haroldo [place] M.D. MEDICAL IMAGING REPORT This report is preliminary unless electronic signature is present EXAM Portable chest HISTORY Respiratory failure, shortness of air, hypotension. COMPARISON 09/18/2016. FINDINGS Portable view of the chest demonstrates no significant change in cardiopulmonary status. There is actually improved left-sided lung volumes, decreasing left basilar atelectasis. Stable cardiomediastinal silhouette in this patient with mild atherosclerotic changes. Posterior spinal fixation instrumentation noted in the thoracic, upper lumbar spine. Continued left-sided volume loss but again improved from the earlier study. Probable small left effusion. Right lung remains clear. Mild pulmonary vascular congestion. No pneumothorax. Dictated by... Gordy Hedrick M.D. THIS IS AN ELECTRONICALLY VERIFIED REPORT Gordy Hedrick M.D. at 09/20/2016 5:29 PM ABDELRAHMAN/hans TD: 09/20/2016 09:19 JOB #: [id number] MEDICAL IMAGING REPORT Page 1 of 1 COPY
--- NOTE | ~2016-09-14 | CR72 ---
[facility] A Service of [facility] & [facility] RADIOLOGY TEXT RESULTS PATIENT: CORNELIUS SAMS LOCATION: [facility] : 55 UNIT #: [id number] AGE: [address]: Higinio Franklin MD SEX: F ORDER DR: [id number] [facility] [address] [place], [place] [address] [id number] P MR#: [id number] Acc #: [id number] NAME: CORNELIUS SAMS : 1955 SEX: F STUDY DATE/TIME: 09/14/2016 13:52 UNIT: [facility] ROOM: STUDY DESCRIPTION: CR Chest Single View Portable Attending Physician: Higinio [place] M.D. Ordering Physician: Higinio [place] M.D. Primary Care Physician: Haroldo [place] M.D. MEDICAL IMAGING REPORT This report is preliminary unless electronic signature is present EXAM Chest, portable, 09/14/2016, 1352 hours. CLINICAL HISTORY 61-year-old woman with altered mental status today, found down at [facility], unresponsive today. COMPARISON Chest x-ray and chest CT 07/08/2016. FINDINGS Portable upright chest demonstrates stable spinal fusion rods. Lung volumes are low with an enlarged cardiac silhouette and mediastinal widening increased from the prior exam. There is bilateral pulmonary venous distension without definite edema or pneumonia. No effusion seen. IMPRESSION 1. There is cardiomegaly increased from prior study with mediastinal widening also appearing increased. The lung volumes are low. 2. There is pulmonary venous distension without definite acute pulmonary density, although the retrocardiac left lower lobe is difficult to assess. There are multiple old healed right rib fractures. STAT * RESULT Dictated by... Janine Erickson M.D. THIS IS AN ELECTRONICALLY VERIFIED REPORT Janine Erickson M.D. at 09/14/2016 2:29 PM SMM/tmw STS. [facility] A Service of [facility] & [facility] RADIOLOGY TEXT RESULTS PATIENT: CORNELIUS SAMS [id number] [birth year] UNIT #: [id number] AGE: [address]: Higinio [place] MD SEX: F ORDER DR: TD: 09/14/2016 14:11 JOB #: [id number] MEDICAL IMAGING REPORT Page 1 of 1 COPY
--- NOTE | ~2016-09-14 | CO ---
Unit #: [id number] #: [id number] Patient: CORNELIUS BEDOYA [id number] [facility] [address] [place], [place] [address] [id number] I MR#: [id number] NAME: CORNELIUS BEDOYA ROOM: [facility] Age: 61 Sex: F Admission Date: 09/14/2016 : 1955 Attending Physician: Natalie Stephenson M.D. Primary Care Physician: Haroldo [place] M.D. Consultation Date: 09/15/2016 CONSULTATION REPORT HISTORY OF PRESENT ILLNESS Ms. Bedoya is a 51-year-old white female with a long history of obesity hypoventilation syndrome. She resides at [facility]. She was last admitted at [facility] on 06/22/2016 with respiratory failure, pneumonia, obstructive sleep apnea, hypoventilation syndrome, congestive heart failure with ejection fraction of 15%, history of CVA with right hemiplegia, and immobility secondary to that. She has also been bothered with paroxysmal supraventricular tachycardia and type 2 diabetes, hypertension, hyperlipidemia, morbid obesity, and chronic pain. She was admitted at this time with urinary tract infection and is not communicative. Her recent medication list included Niferex, Pepcid, multivitamin, hydrocodone, spironolactone, potassium, vitamin D, Senokot, milk of magnesia, MiraLax, furosemide, Lipitor, insulin, Januvia, Zofran, Seroquel, clonazepam, Coreg, nebulized treatments, decreasing prednisone, Entresto, Cymbalta, and Zestril. She is normally followed by Dr. Menendez of our practice. ALLERGIES Sulfa and Motrin, unknown reactions. SOCIAL HISTORY Significant for senior living resident. Remote smoking. Does not drink. FAMILY HISTORY Unobtainable. REVIEW OF SYSTEMS Unobtainable at this time. PHYSICAL EXAMINATION GENERAL: She is an obese white female, who responds to pain stimuli. She is comfortable on noninvasive ventilation at this time. VITAL SIGNS: Temperature is 99, pulse is 90 and regular, respirations 20, sats are 100% on 2 L, blood pressure 122/52, weight is 248 pounds, BMI 39. HEENT: Pupils are round and reactive to light. Sclerae nonicteric. Head and neck are normocephalic. There is no obvious supraclavicular or cervical adenopathy. She is morbidly obese. RESPIRATORY: There is diminished breath sounds with rales. HEART: Slight systolic murmurs present without rubs or gallops. ABDOMEN: Soft, nontender. There is no appreciable enlargement of the liver or spleen. EXTREMITIES: Show edema, but no clubbing or cyanosis. NEUROLOGIC: She has . She has evidence of right hemiplegia in the past. Abnormal reflexes accompanied that. Motor function is not Unit #: [id number] #: [id number] Patient: CORNELIUS BEDOYA readily assessed at this point. SKIN: Shows no rashes. DIAGNOSTIC STUDIES LABORATORY RESULTS: Arterial blood gases showed a pH of 7.26, CO2 of 60, O2 of 215. Glucose was 211, BUN of 58, creatinine 1.5, sodium 140, potassium 5.6, chloride 104, CO2 of 29, anion gap of 11, calcium 9.9, phosphorus 3.3, magnesium 2.2, total protein 5.4 with an albumin of 2.7. Bilirubin was normal at 0.6. Liver functions were within normal limits. Amylase and lipase were also within normal limits. Ammonia level was 29. B12 normal at 448. Folate normal at 12.2. Hemoglobin A1c 7.1. Lactic acid 0.8. INR 1.0. White count 12.5, hematocrit of 28. IMAGING STUDIES: Chest x-ray shows lower lobe infiltrate, cardiomegaly, possible small left effusion by report. IMPRESSION Acute on chronic respiratory failure, stable, on noninvasive ventilation at this time. She has currently been treated with broad-spectrum antibiotics for presumed urinary tract infection. Cultures have shown mixed gram negative and gram positive results. She is currently a DNR. We will not precede with intubation or mechanical ventilation. Continue general ICU support and appropriate consultation with Renal Service. Thank you very much for allowing us to participate in her care. Dictated by... Colten Ding M.D. SONYA/nilo TD: 09/15/2016 17:20 JOB #: [id number] CONSULTATION REPORT Page 1 of 1 X Colten Ding MD CONSULTATION REPORT
--- NOTE | ~2016-09-14 | EKG ---
PATIENT: CORNELIUS SAMS UNIT #: [id number] Ventricular Rate: 66 BPM Atrial Rate: 66 BPM P-R Interval: 142 ms QRS Duration: 100 ms Q-T Interval: 380 ms QTC Calculation(Bezet): 398 ms P [place]: 47 degrees Calculated R [place]: 12 degrees Calculated T [place]: 50 degrees Diagnosis Line: Normal sinus rhythm Diagnosis Line: Low voltage QRS Diagnosis Line: Borderline ECG Diagnosis Line: When compared with ECG of 02-JUL-2016 20:22, Diagnosis Line: Nonspecific T wave abnormality, improved in Diagnosis Line: Lateral leads Diagnosis Line: Confirmed by ELISABET PEREIRA MD ([id number]) on Diagnosis Line: 09/16/2016 8:43:35 AM INTERPRETING : [facility]
[2016-09-14 14:06] LABS: ARTERIAL BLD GAS O2 SATURATION 93.8 % (90.0-100.0); ARTERIAL BLOOD GAS CARBOXY HB 0.8 %sat (0.0-9.0); ARTERIAL BLOOD GAS HCO3 31.3 mmol/L; ARTERIAL BLOOD GAS MET HB 1.1 %sat (0.0-2.0); ARTERIAL BLOOD GAS pH 7.242 (7.350-7.450)
[2016-09-14 14:08] LABS: ARTERIAL BLOOD GAS PCO2 72.6 mmHg (35.0-45.0)
[2016-09-14 14:09] LABS: ARTERIAL BLOOD GAS ALLEN TEST NORMAL; ARTERIAL BLOOD GAS ART SITE LEFT RADIAL; ARTERIAL BLOOD GAS DELIVERY NASAL CANNULA; ARTERIAL BLOOD GAS PO2 77.3 mmHg (80.0-100); ARTERIAL DRAW? YES
[2016-09-14 14:59] LABS: URINE APPEARANCE CLOUDY; URINE BILIRUBIN NEG (NEG); URINE BLOOD NEG (NEG); URINE COLOR YELLOW; URINE GLUCOSE NEG (NEG); URINE KETONE NEG (NEG); URINE LEUKOCYTE ESTERASE 3+ (NEG); URINE NITRATE POS (NEG); URINE PH 5.5 (5-8); URINE PROTEIN NEG (NEG); URINE SPECIFIC GRAVITY 1.014 (1.003-1.035); URINE UROBILINOGEN 0.2 MG/DL (NEG)
[2016-09-14 15:01] LABS: CULTURE INDICATED? YES; URINE BACTERIA AUWI 4+ (NEGATIVE); URINE SQUAMOUS EPITHELIAL CELL OCC /[HPF]; UWBCS1 AUWI 50-100 (0-5)
[2016-09-14 15:14] LABS: U HYALINE CASTS AUWI 0-2 /[LPF]
[2016-09-14 16:11] LABS: POC - CKMB <1.0 ng/mL (0.0-7.9); POC - TROPONIN <0.05 ng/mL (<=0.05)
[2016-09-14 16:21] LABS: BASOPHIL# 0.1 X10e3 (0-0.3); EOSINOPHIL# 0.4 X10e3 (0-0.7); EOSINOPHIL% 2.7 % (0.0-7.0); HEMATOCRIT 24.3 % (35.0-45.0); HEMOGLOBIN 7.5 gm/dL (12.0-16.0); LYMPHOCYTE# 3.2 X10e3 (1.0-3.5); LYMPHOCYTE% 23.7 % (17.0-45.0); MEAN CELL VOLUME 94.2 FL (83-96); MEAN CORPUSCULAR HEMOGLOBIN 29.1 PG (28-34); MEAN CORPUSCULAR HGB CONC 30.9 g/dL (30-36); MEAN PLATELET VOLUME 10.3 FL (6.5-11.5); MONOCYTE# 1.3 X10e3 (0-1.0); MONOCYTE% 9.8 % (3.0-12.0); NEUTROPHIL# 8.6 X10e3 (1.5-7.1); NEUTROPHIL% 62.8 % (40-75); PLATELET COUNT 200 X10e3 (140-420); RED BLOOD COUNT 2.57 X10e (3.90-5.30); RED CELL DISTRIBUTION WIDTH 17.3 % (11.0-15.5); WHITE BLOOD COUNT 13.7 X10e3 (4.0-10.5)
[2016-09-14 16:27] LABS: DIFF IND YES
[2016-09-14 16:39] LABS: ALBUMIN SERUM 2.7 g/dL (3.5-5.0); BILIRUBIN,TOTAL 0.6 mg/dL (0.2-2.0); BUN/CREATININE RATIO 36.11; CALCIUM SERUM 8.4 mg/dL (8.4-10.2); CREATININE SERUM 1.8 mg/dL (0.6-1.4); GLOM FILT RATE Estimated 29.9 mL/min (>60); PROTEIN TOTAL SERUM 5.4 g/dL (6.0-8.3)
[2016-09-14 16:41] LABS: POTASSIUM 5.8 mmol/L (3.5-5.1)
[2016-09-14 16:44] LABS: PLATELET ESTIMATE NORMAL (NORMAL)
[2016-09-14 16:45] LABS: RBC NORMAL YES
[2016-09-14 17:26] LABS: POC - CKMB <1.0 ng/mL (0.0-7.9); POC - TROPONIN <0.05 ng/mL (<=0.05)
[2016-09-14 18:02] LABS: ARTERIAL BLD GAS O2 SATURATION 98.1 % (90.0-100.0); ARTERIAL BLOOD GAS ALLEN TEST NORMAL; ARTERIAL BLOOD GAS ART SITE LEFT RADIAL; ARTERIAL BLOOD GAS CARBOXY HB 0.5 %sat (0.0-9.0); ARTERIAL BLOOD GAS HCO3 27.4 mmol/L; ARTERIAL BLOOD GAS MET HB 1.3 %sat (0.0-2.0); ARTERIAL BLOOD GAS PCO2 60.3 mmHg (35.0-45.0); ARTERIAL BLOOD GAS pH 7.266 (7.350-7.450); ARTERIAL DRAW? YES
[2016-09-14 18:03] LABS: ARTERIAL BLOOD GAS DELIVERY BIPAP 20/5
[2016-09-14] MEDS ORDERED: MEGA MULTIVITA1 EACH PO (18:23)
[2016-09-14] MEDS ORDERED: HYDROCORTISONE30 G7 EXT (18:24)
[2016-09-14] MEDS ORDERED: ALDACTONE PO (18:24)
[2016-09-14] MEDS ORDERED: COREG6.25 MG PO (18:25)
[2016-09-14] MEDS ORDERED: DULOXETINE HCL60 MG PO (18:25)
[2016-09-14] MEDS ORDERED: CLONAZEPAM2 MG PO (18:25)
[2016-09-14] MEDS ORDERED: COMBIVENT U/D3 M3 INH (18:26)
[2016-09-14] MEDS ORDERED: ENTRESTO 24 MG1 EACH (18:26)
[2016-09-14] MEDS ORDERED: FISH OIL 1,0001 EAC3 PO (18:26)
[2016-09-14] MEDS ORDERED: NEURONTIN100 MG PO (18:27)
[2016-09-14] MEDS ORDERED: GLUCAGEN1 MG (18:27)
[2016-09-14] MEDS ORDERED: JANUVIA PO (18:28)
[2016-09-14] MEDS ORDERED: IPRAT-ALBUT 0.5-3 ML INH (18:28)
[2016-09-14] MEDS ORDERED: LASIX PO (18:29)
[2016-09-14] MEDS ORDERED: LIPITOR PO (18:29)
[2016-09-14] MEDS ORDERED: LASIX20 MG PO (18:29)
[2016-09-14] MEDS ORDERED: MIRALAX17 GM PO (18:30)
[2016-09-14] MEDS ORDERED: MELATIN3 MG PO (18:30)
[2016-09-14] MEDS ORDERED: MILK OF MAGNESIA PO (18:30)
[2016-09-14] MEDS ORDERED: MYCOSTATIN POWD15 GM EXT (18:31)
[2016-09-14] MEDS ORDERED: NIFEREX PO (18:33)
[2016-09-14] MEDS ORDERED: NOVOLOG100 UNIT/1 (18:34)
[2016-09-14] MEDS ORDERED: PEPCID AC20 M2 PO (18:34)
[2016-09-14] MEDS ORDERED: LORTAB 10-3251 EACH PO (18:34)
[2016-09-14] MEDS ORDERED: SEROQUEL25 MG PO (18:35)
[2016-09-14] MEDS ORDERED: SENNA PO (18:35)
[2016-09-14] MEDS ORDERED: SEROQUEL50 M1 PO (18:36)
[2016-09-14] MEDS ORDERED: LISINOPRIL PO (18:36)
[2016-09-14] MEDS ORDERED: ZOFRAN PO (18:37)
[2016-09-14 21:28] LABS: AMPHETAMINE NEG (NEG); BARBITURATES NEG (NEG); BENZODIAZEPINES NEG (NEG); COCAINE NEG (NEG); MARIJUANA NEG (NEG); OPIATES POS (NEG); TRICYCLIC ANTIDEPRESSANTS NEG (NEG); U METHADONE NEG (NEG)
[2016-09-15 04:31] LABS: BASOPHIL% 0.4 % (0-2.5); EOSINOPHIL# 0.2 X10e3 (0-0.7); EOSINOPHIL% 1.5 % (0.0-7.0); HEMATOCRIT 28.5 % (35.0-45.0); HEMOGLOBIN 8.8 gm/dL (12.0-16.0); LYMPHOCYTE# 1.2 X10e3 (1.0-3.5); LYMPHOCYTE% 9.8 % (17.0-45.0); MEAN CELL VOLUME 93.5 FL (83-96); MEAN CORPUSCULAR HEMOGLOBIN 28.8 PG (28-34); MEAN CORPUSCULAR HGB CONC 30.8 g/dL (30-36); MEAN PLATELET VOLUME 9.3 FL (6.5-11.5); MONOCYTE# 0.7 X10e3 (0-1.0); MONOCYTE% 5.8 % (3.0-12.0); NEUTROPHIL# 10.3 X10e3 (1.5-7.1); NEUTROPHIL% 82.5 % (40-75); PLATELET COUNT 224 X10e3 (140-420); RED BLOOD COUNT 3.05 X10e (3.90-5.30); RED CELL DISTRIBUTION WIDTH 16.4 % (11.0-15.5); WHITE BLOOD COUNT 12.5 X10e3 (4.0-10.5)
[2016-09-15 04:32] LABS: DIFF IND NO
[2016-09-15 04:48] LABS: BUN/CREATININE RATIO 38.66; CALCIUM SERUM 9.9 mg/dL (8.4-10.2); CREATININE SERUM 1.5 mg/dL (0.6-1.4); GLOM FILT RATE Estimated 37.2 mL/min (>60)
[2016-09-15 04:51] LABS: POTASSIUM 5.6 mmol/L (3.5-5.1)
[2016-09-15 12:33] LABS: CALCIUM SERUM 10.3 mg/dL (8.4-10.2); CREATININE SERUM 1.2 mg/dL (0.6-1.4); GLOM FILT RATE Estimated 48.7 mL/min (>60); POTASSIUM 5.2 mmol/L (3.5-5.1)
[2016-09-16 05:34] LABS: BASOPHIL# 0.1 X10e3 (0-0.3); BASOPHIL% 0.9 % (0-2.5); EOSINOPHIL# 0.3 X10e3 (0-0.7); EOSINOPHIL% 3.2 % (0.0-7.0); HEMATOCRIT 26.5 % (35.0-45.0); HEMOGLOBIN 8.4 gm/dL (12.0-16.0); LYMPHOCYTE# 2.6 X10e3 (1.0-3.5); LYMPHOCYTE% 27.9 % (17.0-45.0); MEAN CELL VOLUME 92.2 FL (83-96); MEAN CORPUSCULAR HEMOGLOBIN 29.3 PG (28-34); MEAN CORPUSCULAR HGB CONC 31.8 g/dL (30-36); MEAN PLATELET VOLUME 9.2 FL (6.5-11.5); MONOCYTE# 1.1 X10e3 (0-1.0); MONOCYTE% 11.2 % (3.0-12.0); NEUTROPHIL# 5.4 X10e3 (1.5-7.1); NEUTROPHIL% 56.8 % (40-75); PLATELET COUNT 212 X10e3 (140-420); RED BLOOD COUNT 2.87 X10e (3.90-5.30); RED CELL DISTRIBUTION WIDTH 16.8 % (11.0-15.5); WHITE BLOOD COUNT 9.5 X10e3 (4.0-10.5)
[2016-09-16 05:45] LABS: DIFF IND NO
[2016-09-16 06:15] LABS: ALBUMIN SERUM 3.1 g/dL (3.5-5.0); BILIRUBIN,TOTAL 0.9 mg/dL (0.2-2.0); BUN/CREATININE RATIO 43.75; CALCIUM SERUM 10.1 mg/dL (8.4-10.2); CREATININE SERUM 0.8 mg/dL (0.6-1.4); GLOM FILT RATE Estimated 79.6 mL/min (>60); MAGNESIUM 1.6 mg/dL (1.6-3.0); PHOSPHOROUS 2.1 mg/dL (2.5-4.6); POTASSIUM 4.5 mmol/L (3.5-5.1); PROTEIN TOTAL SERUM 5.7 g/dL (6.0-8.3)
[2016-09-16 15:51] LABS: HEMOGLOBIN 8.6 gm/dL (12.0-16.0)
[2016-09-17 05:31] LABS: BASOPHIL# 0.1 X10e3 (0-0.3); BASOPHIL% 1.1 % (0-2.5); EOSINOPHIL# 0.2 X10e3 (0-0.7); EOSINOPHIL% 2.1 % (0.0-7.0); HEMATOCRIT 25.3 % (35.0-45.0); HEMOGLOBIN 8.1 gm/dL (12.0-16.0); LYMPHOCYTE# 2.9 X10e3 (1.0-3.5); LYMPHOCYTE% 29.4 % (17.0-45.0); MEAN CORPUSCULAR HEMOGLOBIN 29.7 PG (28-34); MEAN CORPUSCULAR HGB CONC 31.9 g/dL (30-36); MEAN PLATELET VOLUME 9.1 FL (6.5-11.5); MONOCYTE# 1.1 X10e3 (0-1.0); MONOCYTE% 11.5 % (3.0-12.0); NEUTROPHIL# 5.5 X10e3 (1.5-7.1); NEUTROPHIL% 55.9 % (40-75); PLATELET COUNT 212 X10e3 (140-420); RED BLOOD COUNT 2.72 X10e (3.90-5.30); RED CELL DISTRIBUTION WIDTH 16.9 % (11.0-15.5); WHITE BLOOD COUNT 9.8 X10e3 (4.0-10.5)
[2016-09-17 05:37] LABS: DIFF IND NO
[2016-09-17 06:45] LABS: BUN/CREATININE RATIO 27.77; CREATININE SERUM 0.9 mg/dL (0.6-1.4); GLOM FILT RATE Estimated 69.1 mL/min (>60); MAGNESIUM 1.6 mg/dL (1.6-3.0); PHOSPHOROUS 2.7 mg/dL (2.5-4.6); POTASSIUM 3.7 mmol/L (3.5-5.1)
[2016-09-17 11:15] LABS: ARTERIAL BLD GAS O2 SATURATION 92.5 % (90.0-100.0); ARTERIAL BLOOD GAS CARBOXY HB 0.6 %sat (0.0-9.0); ARTERIAL BLOOD GAS HCO3 31.3 mmol/L; ARTERIAL BLOOD GAS MET HB 0.8 %sat (0.0-2.0); ARTERIAL BLOOD GAS PCO2 48.3 mmHg (35.0-45.0)
[2016-09-17 11:17] LABS: ARTERIAL BLOOD GAS PO2 65.5 mmHg (80.0-100); ARTERIAL DRAW? YES
[2016-09-17 11:18] LABS: ARTERIAL BLOOD GAS ALLEN TEST NORMAL; ARTERIAL BLOOD GAS ART SITE RIGHT RADIAL; ARTERIAL BLOOD GAS DELIVERY NASAL CANNULA
[2016-09-18 04:59] LABS: BASOPHIL# 0.1 X10e3 (0-0.3); BASOPHIL% 0.6 % (0-2.5); EOSINOPHIL# 0.1 X10e3 (0-0.7); EOSINOPHIL% 0.6 % (0.0-7.0); HEMATOCRIT 26.5 % (35.0-45.0); HEMOGLOBIN 8.2 gm/dL (12.0-16.0); LYMPHOCYTE# 3.4 X10e3 (1.0-3.5); LYMPHOCYTE% 20.5 % (17.0-45.0); MEAN CELL VOLUME 92.2 FL (83-96); MEAN CORPUSCULAR HEMOGLOBIN 28.6 PG (28-34); MEAN PLATELET VOLUME 8.8 FL (6.5-11.5); MONOCYTE# 1.3 X10e3 (0-1.0); MONOCYTE% 7.8 % (3.0-12.0); NEUTROPHIL# 11.8 X10e3 (1.5-7.1); NEUTROPHIL% 70.5 % (40-75); PLATELET COUNT 237 X10e3 (140-420); RED BLOOD COUNT 2.87 X10e (3.90-5.30); RED CELL DISTRIBUTION WIDTH 16.7 % (11.0-15.5)
[2016-09-18 05:00] LABS: DIFF IND YES; WHITE BLOOD COUNT 16.7 X10e3 (4.0-10.5)
[2016-09-18 05:49] LABS: ANISOCYTOSIS SL; PLATELET ESTIMATE NORMAL (NORMAL)
[2016-09-18 06:29] LABS: BUN/CREATININE RATIO 23.75; CALCIUM SERUM 9.9 mg/dL (8.4-10.2); CREATININE SERUM 0.8 mg/dL (0.6-1.4); GLOM FILT RATE Estimated 79.6 mL/min (>60); MAGNESIUM 1.5 mg/dL (1.6-3.0); PHOSPHOROUS 2.6 mg/dL (2.5-4.6); POTASSIUM 3.4 mmol/L (3.5-5.1)
[2016-09-18 22:15] LABS: CALCIUM (PTHINTACT) 10.2 mg/dL (8.6-10.4); SPE A1GLOB (PNL) 0.3 g/dL (0.2-0.3); SPE A2GLOB (PNL) 0.9 g/dL (0.5-0.9); SPE ALB (PNL) 3.1 g/dL (3.8-4.8); SPE BETA 1 GLOBULIN 0.5 g/dL (0.4-0.6); SPE BETA 2 GLOBULIN 0.4 g/dL (0.2-0.5); SPE GAMMA (PNL) 0.7 g/dL (0.8-1.7); SPETP (PNL) 5.9 g/dL (6.1-8.1)
[2016-09-19 06:14] LABS: BASOPHIL# 0.1 X10e3 (0-0.3); BASOPHIL% 0.6 % (0-2.5); EOSINOPHIL# 0.2 X10e3 (0-0.7); EOSINOPHIL% 1.4 % (0.0-7.0); HEMATOCRIT 27.2 % (35.0-45.0); HEMOGLOBIN 8.5 gm/dL (12.0-16.0); LYMPHOCYTE# 2.9 X10e3 (1.0-3.5); LYMPHOCYTE% 20.6 % (17.0-45.0); MEAN CELL VOLUME 91.8 FL (83-96); MEAN CORPUSCULAR HEMOGLOBIN 28.9 PG (28-34); MEAN CORPUSCULAR HGB CONC 31.4 g/dL (30-36); MEAN PLATELET VOLUME 8.5 FL (6.5-11.5); MONOCYTE% 6.7 % (3.0-12.0); NEUTROPHIL# 10.1 X10e3 (1.5-7.1); NEUTROPHIL% 70.7 % (40-75); PLATELET COUNT 229 X10e3 (140-420); RED BLOOD COUNT 2.96 X10e (3.90-5.30); RED CELL DISTRIBUTION WIDTH 17.2 % (11.0-15.5); WHITE BLOOD COUNT 14.3 X10e3 (4.0-10.5)
[2016-09-19 06:20] LABS: DIFF IND NO
[2016-09-19 06:45] LABS: BUN/CREATININE RATIO 13.75; CALCIUM SERUM 9.8 mg/dL (8.4-10.2); CREATININE SERUM 0.8 mg/dL (0.6-1.4); GLOM FILT RATE Estimated 79.6 mL/min (>60); MAGNESIUM 1.6 mg/dL (1.6-3.0); POTASSIUM 3.5 mmol/L (3.5-5.1)
[2016-09-20 06:06] LABS: BASOPHIL# 0.1 X10e3 (0-0.3); BASOPHIL% 0.9 % (0-2.5); EOSINOPHIL# 0.3 X10e3 (0-0.7); EOSINOPHIL% 2.4 % (0.0-7.0); HEMATOCRIT 28.1 % (35.0-45.0); HEMOGLOBIN 8.8 gm/dL (12.0-16.0); LYMPHOCYTE# 4.7 X10e3 (1.0-3.5); LYMPHOCYTE% 34.4 % (17.0-45.0); MEAN CELL VOLUME 91.8 FL (83-96); MEAN CORPUSCULAR HEMOGLOBIN 28.9 PG (28-34); MEAN CORPUSCULAR HGB CONC 31.4 g/dL (30-36); MEAN PLATELET VOLUME 8.2 FL (6.5-11.5); MONOCYTE% 7.6 % (3.0-12.0); NEUTROPHIL# 7.5 X10e3 (1.5-7.1); NEUTROPHIL% 54.7 % (40-75); PLATELET COUNT 225 X10e3 (140-420); RED BLOOD COUNT 3.06 X10e (3.90-5.30); RED CELL DISTRIBUTION WIDTH 16.5 % (11.0-15.5); WHITE BLOOD COUNT 13.7 X10e3 (4.0-10.5)
[2016-09-20 06:07] LABS: DIFF IND NO
[2016-09-20 07:04] LABS: BUN/CREATININE RATIO 11.25; CALCIUM SERUM 10.1 mg/dL (8.4-10.2); CREATININE SERUM 0.8 mg/dL (0.6-1.4); GLOM FILT RATE Estimated 79.6 mL/min (>60)
[2016-09-20 23:02] LABS: SPE A1GLOB (PNL) 0.3 g/dL (0.2-0.3); SPE A2GLOB (PNL) 0.8 g/dL (0.5-0.9); SPE ALB (PNL) 3.2 g/dL (3.8-4.8); SPE BETA 1 GLOBULIN 0.4 g/dL (0.4-0.6); SPE BETA 2 GLOBULIN 0.4 g/dL (0.2-0.5); SPE GAMMA (PNL) 0.6 g/dL (0.8-1.7); SPETP (PNL) 5.5 g/dL (6.1-8.1)
== END 2016-09-21 01:01 | DRG 682 ==
LOC: CED 14:57 → CEDOF 19:15 → CICCU3 23:07 → C3A PCU 09-17 13:33
PROVIDERS: Emergency Medicine; Internal Medicine; Internal Medicine Nephrology; Physician Assistant Medical
PROC: 05HN33Z Insertion of Infusion Device into Left Internal Jugular Vein, Percutaneous Approach (ICD-10-PCS; principal; 2016-09-14)
DX: N17.9 Acute kidney failure, unspecified (principal); J96.20 Acute and chronic respiratory failure, unspecified whether with hypoxia or hypercapnia; E87.0 Hyperosmolality and hypernatremia; I11.0 Hypertensive heart disease with heart failure; I50.22 Chronic systolic (congestive) heart failure; E83.42 Hypomagnesemia; I42.9 Cardiomyopathy, unspecified; N39.0 Urinary tract infection, site not specified; E66.2 Morbid (severe) obesity with alveolar hypoventilation; I69.351 Hemiplegia and hemiparesis following cerebral infarction affecting right dominant side; B96.1 Klebsiella pneumoniae [K. pneumoniae] as the cause of diseases classified elsewhere; E11.9 Type 2 diabetes mellitus without complications; E78.5 Hyperlipidemia, unspecified; E87.5 Hyperkalemia; Z87.891 Personal history of nicotine dependence; I47.9 Paroxysmal tachycardia, unspecified; I25.10 Atherosclerotic heart disease of native coronary artery without angina pectoris
CPT/HCPCS: 36415; 36600; 51702; 71010; 71020; 80048; 80053; 80202; 80307; 81003; 82140; 82274; 82310; 82553; 82803; 82947; 83605; 83735; 83880; 83970; 84100; 84132; 84165; 84484; 85014; 85018; 85025; 86334; 86850; 86900; 86901; 87040; 87045; 87086; 87088; 87186; 87427; 87899; 93005; 94640; 94660; 94760; 94761; 96361; 96374; 99291; J0610; J0696; J1265; J1650; J1815; J2310; J2405; J2543; J3370; J3475